=== PATIENT | female | born 1975 | race Caucasian/White ===

== ENCOUNTER → 2016-10-29 | Outpatient (CLI) | payer BC ==
--- NOTE | 2016-10-29 16:49 | CONS ---
DATE OF CONSULTATION: 10/29/2016 This patient is a 41-year-old lady who has been evaluated in the sleep center for possible obstructive sleep apnea-hypopnea syndrome and also because of awakenings from sleep with seeing some possible dream pictures and possible [id number] movements and nightmares. HISTORY OF PRESENT ILLNESS/SLEEP-WAKE EVALUATION: Patient's usual sleep schedule is from around 10 or 11 p.m. until 6:15 on working days and from around 10 or 12 until 7 or 8 a.m. on weekends. Sometimes she has problems with falling asleep. She has a TV set in the bedroom. She wakes up from sleep more than 5 times, and up to 5 times she may need to go to the bathroom. She does have occasional snoring, grinding teeth, palpitations, heartburn and gasping for air. In the morning she wakes up tired. [place] Sleepiness Scale is 6, which is normal. She worries about her sleep, has irritability and anxiety. Usually she does not take naps. Sometimes a positive history of hypnagogic hallucinations. No history of sleep paralysis. No history of cataplexy. Past medical history is positive for: 1. Hypertension. 2. Acid reflux. 3. Diabetes mellitus. 4. Anxiety. 5. Left hip pain. PAST SURGICAL HISTORY: 1. Cholecystectomy. 2. Surgery for kidney stone. MEDICATIONS: 1. Losartan hydrochlorothiazide. 2. Amlodipine. 3. Levemir. 4. Famotidine. 5. Alprazolam. 6. Ibuprofen. 7. Cyclobenzaprine. SOCIAL HISTORY: Positive for smoking for about 20 years, starting from 1 pack a day and then significantly less than 1 pack; quit 2 years ago. Alcohol consumption socially; one glass of wine. FAMILY HISTORY: Hypertension, heart problems, hyperlipidemia, stroke, arthritis, asthma, snoring, cancer, acid reflux, liver problems, diabetes, mental illness. PHYSICAL EXAMINATION: GENERAL: A pleasant 41-year-old lady without distress. VITAL SIGNS: BP 149/74, HR 90, RR 16. Height 62-1/2. Weight 314.8. BMI 56.5. Neck 17 inches in circumference. Temperature 98.2. Oxygen saturation at room air 96%. HEENT: PERRLA, EOMI. Evaluation of oropharynx showed tongue protrudes midline; short distance between soft palate and posterior pharyngeal wall. NECK: Supple. No JVD. Thyroid is not palpable. LUNGS: Clear to percussion and to auscultation. Good air exchange. No wheezing or rhonchi. HEART: S1, S2 regular. No murmurs, gallops or rubs. ABDOMEN: Obese. EXTREMITIES: No clubbing or cyanosis. PRESCHOOL DIRECTOR: Awake, alert, and oriented x3. Cranial nerves 2 to 7 intact. There is no fasciculation or atrophy noted. No focal deficits observed. IMPRESSION: 1. Occasional snoring, multiple awakenings from sleep with nocturia, obesity; possible obstructive sleep apnea-hypopnea syndrome. 2. Awakenings from sleep with nightmares. 3. Some episodes of movements, possibly out of dream. Rule out REM sleep behavioral disorder. 4. Hypertension. 5. Acid reflux. 6. Diabetes mellitus. 7. Anxiety. 8. Left hip pain. 9. Status post cholecystectomy. 10. Status post kidney stone removal. 11. Obesity; body mass index of 56.5. PLAN: 1. Polysomnography for evaluation of patient's breathing during sleep. 2. CPAP/BiPAP titration if sleep study confirms obstructive sleep apnea-hypopnea syndrome. 3. Preferable position during sleep on the side. 4. No driving if patient feels any sleepiness. Patient is aware of civil and criminal liability for unsafe driving. 5. I will see patient for follow-up visit to explain results of the testing and following plan. Thank you very much for referring this patient for consultation. Sincerely, Gentry Matute MD, PhD, FAASM. Diplomat of [employer], Sleep Medicine Board by [employer] Senior Administrator Support of [facility] [place]
== END ==
LOC: SLEEP 13:42
PROVIDERS: ATTEND Internal Medicine
DX: R06.83 Snoring (principal); I10 Essential (primary) hypertension; K21.9 Gastro-esophageal reflux disease without esophagitis; E11.9 Type 2 diabetes mellitus without complications; F41.9 Anxiety disorder, unspecified; E66.9 Obesity, unspecified; Z90.49 Acquired absence of other specified parts of digestive tract; Z68.43 Body mass index [BMI] 50.0-59.9, adult; Z79.1 Long term (current) use of non-steroidal anti-inflammatories (NSAID); Z79.899 Other long term (current) drug therapy; Z87.891 Personal history of nicotine dependence
CPT/HCPCS: 99211

== ENCOUNTER 2017-01-19 17:47 | Emergency (ER) | payer BC ==
[2017-01-19] MEDS ORDERED: SODIUM CHLORIDE 0.9% 1,000 ML IV STA (18:02)
[2017-01-19] MEDS ORDERED: MAG HYDROX/AL HYDROX/SIMETH 30 ML, HYOSCYAMINE ELIXIR 10 ML, CIMETIDINE HCL 300 MG, LID... PO STA ×4 (18:02)
[2017-01-19] MEDS ORDERED: ONDANSETRON 4 MG/2 ML VIAL IVP STA (18:02)
[2017-01-19] MEDS ORDERED: HYDROmorphone 1 MG/ML 1 ML SYRINGE IVP STA ×2 (18:02→20:39)
--- NOTE | 2017-01-19 18:06 | ED ---
Abdominal Pain HPI - General Chief Complaint: Abdominal Pain Stated Complaint: Abd Pain Time Seen by Provider: 01/19/17 17:55 Source: patient, RN notes reviewed, old records reviewed Mode of arrival: ambulatory Limitations: no limitations - History of Present Illness Initial Comments: This is a 41-year-old female presenting to the emergency room chief complaint of acute onset of epigastric abdominal pain for the past 12 hours. Patient reports that she was feeling fine until yesterday had [place] cereal for breakfast this morning. She reports that the pain started around 95 this morning she was sitting at work. She reports that the pain became unbearable and she did go home as she is also having some episodes of diarrhea. She states that she took some Pepto-Bismol which stopped the diarrhea but the pain seemed to continue to get worse. She reports that she took a Gas-X one hour prior to arrival had some belching episodes but concerned that there may be something more causing the pain besides gas or food poisoning. Patient states that she's had no vomiting but felt nauseated. She denies any other recent symptoms besides the onset of this abdominal pain today. She reports that she is diabetic and has high blood pressure. She does use insulin to manage her diabetes and her last blood sugar was 1:30. Patient does arrive to emergency department with a mild fever of 99.9. General history includes cholecystectomy. She denies any chest pain or shortness of breath. She denies any dysuria or hematuria or blood in her bowel movements. Patient denies any recent shortness of breath, chest pain, back pain, vomiting, numbness or tingling, dysuria or hematuria, constipation headaches or visual changes, or any other current symptoms - Related Data Home Medications Medication Instructions Recorded Confirmed ALPRAZolam [Xanax] 0.25 mg PO Q8HR PRN 07/05/14 01/19/17 Losartan/Hydrochlorothiazide 1 tab PO DAILY 07/05/14 01/19/17 [Losartan-Hctz 100-25 mg Tab] Furosemide [Lasix] 20 mg PO DAILY@199901/19/17 01/19/17 Insulin Detemir [Levemir Flextouch] 20 units SQ HS 01/19/17 01/19/17 Previous Rx's Medication Instructions Recorded Ibuprofen [Motrin] 800 mg PO Q6HR PRN #20 tab 08/14/14 Dicyclomine [Bentyl] 10 mg PO TID #15 capsule 01/19/17 Famotidine [Pepcid] 20 mg PO BID #20 tablet 01/19/17 Ondansetron Odt [Zofran Odt] 4 mg PO Q8HR PRN #12 tab 01/19/17 Allergies Allergy/AdvReac Type Severity Reaction Status Date / Time No Known Allergies Allergy Verified 01/19/17 18:36 Review of Systems ROS Statement: Those systems with pertinent positive or pertinent negative responses have been documented in the HPI. ROS Other: All systems not noted in ROS Statement are negative. Past Medical History Past Medical History: Hypertension History of Any Multi-Drug Resistant Organisms: None Reported Past Surgical History: Cholecystectomy Additional Past Surgical History / Comment(s): LT BREAST LUMPECTOMY, FINGER RECONSTRUCTION Past Psychological History: No Psychological Hx Reported Smoking Status: Former smoker Past Alcohol Use History: None Reported Past Drug Use History: None Reported General Exam - General Exam Comments Initial Comments: This is a 41-year-old female. No acute distress. Limitations: no limitations General appearance: alert, in no apparent distress Head exam: Present: atraumatic, normocephalic, normal inspection Eye exam: Present: normal appearance, PERRL, EOMI. Absent: scleral icterus, conjunctival injection, periorbital swelling ENT exam: Present: normal exam, mucous membranes moist Neck exam: Present: normal inspection. Absent: tenderness, meningismus, lymphadenopathy Respiratory exam: Present: normal lung sounds bilaterally. Absent: respiratory distress, wheezes, rales, rhonchi, stridor Cardiovascular Exam: Present: regular rate, normal rhythm, normal heart sounds. Absent: systolic murmur, diastolic murmur, rubs, gallop, clicks GI/Abdominal exam: Present: soft, tenderness (Patient has significant left upper quadrant epigastric tenderness.), normal bowel sounds. Absent: distended , guarding, rebound, rigid Extremities exam: Present: normal inspection, full ROM, normal capillary refill. Absent: tenderness, pedal edema, joint swelling, calf tenderness Back exam: Present: normal inspection Neurological exam: Present: alert, oriented X3, CN II-XII intact Psychiatric exam: Present: normal affect, normal mood Skin exam: Present: warm, dry, intact, normal color. Absent: rash Course Vital Signs 07/18/17 07/18/17 17:49 19:10 Temperature 100.1 F H 98.2 F Pulse Rate 95 68 Respiratory 20 16 Rate Blood Pressure 165/91 142/60 O2 Sat by Pulse 99 98 Oximetry Medical Decision Making - Medical Decision Making This is a 41-year-old female presenting to the emergency room chief complaint of acute onset of epigastric abdominal pain for the past 12 hours. Patient reports that she was feeling fine until yesterday had [place] cereal for breakfast this morning. She reports that the pain started around 95 this morning she was sitting at work. She reports that the pain became unbearable and she did go home as she is also having some episodes of diarrhea. She states that she took some Pepto-Bismol which stopped the diarrhea but the pain seemed to continue to get worse. She reports that she took a Gas-X one hour prior to arrival had some belching episodes but concerned that there may be something more causing the pain besides gas or food poisoning. Patient states that she's had no vomiting but felt nauseated. She denies any other recent symptoms besides the onset of this abdominal pain today. She reports that she is diabetic and has high blood pressure. She does use insulin to manage her diabetes and her last blood sugar was 1:30. She appears acutely discomforting in initial exam. Tenderness over the left upper and epigastric region. Patient had exquisite fever upon arriving to the emergency department. Lab work was reviewed and shows no abnormalities. Patient was reevaluated after pain medication and GI cocktail. She reports the pain has subsided somewhat however discontinue to persist. Patient continues to be tender. At this time and decided to CT abdomen and pelvis. This shows some thickening and inflammatory changes over the distal ileum consistent with possible inflammatory bowel disease. Discussed this with the patient that she is follow- up with GI specialist. Patient will be placed on a clear liquid diet for the next 48 hours. Also will be prescribed Bentyl, and Zofran and Pepcid. Advised patient to follow-up tomorrow with her primary care provider. Return parameters were discussed. - Lab Data Result diagrams: 01/19/17 18:33 01/19/17 18:33 Lab Results 01/19/17 01/19/17 01/19/17 Range/Units 18:33 18:33 18:33 WBC 10.8 H (3.8-10.6) k/uL RBC 4.98 (3.80-5.40) m/uL Hgb 13.5 (11.4-16.0) gm/dL Hct 39.4 (34.0-46.0) % MCV 79.1 L (80.0-100.0) fL MCH 27.1 (25.0-35.0) pg MCHC 34.2 (31.0-37.0) g/dL RDW 15.2 (11.5-15.5) % Plt Count 294 (150-450) k/uL Neutrophils % 71 % Lymphocytes % 22 % Monocytes % 4 % Eosinophils % 2 % Basophils % 0 % Neutrophils # 7.7 (1.3-7.7) k/uL Lymphocytes # 2.3 (1.0-4.8) k/uL Monocytes # 0.4 (0-1.0) k/uL Eosinophils # 0.2 (0-0.7) k/uL Basophils # 0.0 (0-0.2) k/uL PT 10.3 (9.0-12.0) sec INR 1.0 (<1.2) APTT 21.8 L (22.0-30.0) sec Sodium 137 (137-145) mmol/L Potassium 4.5 (3.5-5.1) mmol/L Chloride 103 (98-107) mmol/L Carbon Dioxide 21 L (22-30) mmol/L Anion Gap 13 mmol/L BUN 12 (7-17) mg/dL Creatinine 0.80 (0.52-1.04) mg/dL Est GFR (MDRD) Af Amer >60 (>60 ml/min/1.73 sqM) Est GFR (MDRD) Non-Af >60 (>60 ml/min/1.73 sqM) Glucose 127 H (74-99) mg/dL Plasma Lactic Acid Som (0.7-2.0) mmol/L Calcium 9.6 (8.4-10.2) mg/dL Total Bilirubin 1.0 (0.2-1.3) mg/dL AST 44 H (14-36) U/L ALT 68 H (9-52) U/L Alkaline Phosphatase 116 (38-126) U/L Total Protein 7.6 (6.3-8.2) g/dL Albumin 4.3 (3.5-5.0) g/dL Amylase 40 (30-110) U/L Lipase 64 (23-300) U/L Urine Color Urine Appearance (Clear) Urine pH (5.0-8.0) Ur Specific [place] (1.001-1.035) Urine Protein (Negative) Urine Glucose (UA) (Negative) Urine Ketones (Negative) Urine Blood (Negative) Urine Nitrite (Negative) Urine Bilirubin (Negative) Urine Urobilinogen (<2.0) mg/dL Ur Leukocyte Esterase (Negative) Urine RBC (0-5) /hpf Urine WBC (0-5) /hpf Ur Squamous Epith Cells (0-4) /hpf Urine Bacteria (None) /hpf Urine Mucus (None) /hpf 01/19/17 01/19/17 Range/Units 18:33 18:49 WBC (3.8-10.6) k/uL RBC (3.80-5.40) m/uL Hgb (11.4-16.0) gm/dL Hct (34.0-46.0) % MCV (80.0-100.0) fL MCH (25.0-35.0) pg MCHC (31.0-37.0) g/dL RDW (11.5-15.5) % Plt Count (150-450) k/uL Neutrophils % % Lymphocytes % % Monocytes % % Eosinophils % % Basophils % % Neutrophils # (1.3-7.7) k/uL Lymphocytes # (1.0-4.8) k/uL Monocytes # (0-1.0) k/uL Eosinophils # (0-0.7) k/uL Basophils # (0-0.2) k/uL PT (9.0-12.0) sec INR (<1.2) APTT (22.0-30.0) sec Sodium (137-145) mmol/L Potassium (3.5-5.1) mmol/L Chloride (98-107) mmol/L Carbon Dioxide (22-30) mmol/L Anion Gap mmol/L BUN (7-17) mg/dL Creatinine (0.52-1.04) mg/dL Est GFR (MDRD) Af Amer (>60 ml/min/1.73 sqM) Est GFR (MDRD) Non-Af (>60 ml/min/1.73 sqM) Glucose (74-99) mg/dL Plasma Lactic Acid Som 1.4 (0.7-2.0) mmol/L Calcium (8.4-10.2) mg/dL Total Bilirubin (0.2-1.3) mg/dL AST (14-36) U/L ALT (9-52) U/L Alkaline Phosphatase (38-126) U/L Total Protein (6.3-8.2) g/dL Albumin (3.5-5.0) g/dL Amylase (30-110) U/L Lipase (23-300) U/L Urine Color Yellow Urine Appearance Cloudy H (Clear) Urine pH 5.5 (5.0-8.0) Ur Specific [place] 1.018 (1.001-1.035) Urine Protein Trace H (Negative) Urine Glucose (UA) Negative (Negative) Urine Ketones Negative (Negative) Urine Blood Negative (Negative) Urine Nitrite Negative (Negative) Urine Bilirubin Negative (Negative) Urine Urobilinogen <2.0 (<2.0) mg/dL Ur Leukocyte Esterase Small H (Negative) Urine RBC 6 H (0-5) /hpf Urine WBC 3 (0-5) /hpf Ur Squamous Epith Cells 4 (0-4) /hpf Urine Bacteria Rare H (None) /hpf Urine Mucus Rare H (None) /hpf - Radiology Data Radiology results: report reviewed Disposition Clinical Impression: Enteritis Disposition: HOME SELF-CARE Condition: Good Instructions: Enteritis (ED) Additional Instructions: Patient is advised to have a clear liquid diet for the next 24-48 hours. Take medications as prescribed. Also recommending to follow-up with GI specialist for further evaluation and possible scopes. Patient is to return to the emergency department if any alarming signs or symptoms occur. Prescriptions: Dicyclomine [Bentyl] 10 mg PO TID #15 capsule Famotidine [Pepcid] 20 mg PO BID #20 tablet Ondansetron Odt [Zofran Odt] 4 mg PO Q8HR PRN #12 tab PRN Reason: Nausea Referrals: Kelvin Francis DO [Primary Care Provider] - 1-2 days Time of Disposition: 20:30
[2017-01-19 18:49] LABS: Basophils % (A) 0 %; CH 26.5; CHCM 33.6; Eosinophils # (A) 0.2 k/uL (0-0.7); Eosinophils % (A) 2 %; HCT 39.4 % (34.0-46.0); HDW 2.82; HGB 13.5 gm/dL (11.4-16.0); Luc # (Auto) 0.15; Luc % (Auto) 1; Lymphocytes # (A) 2.3 k/uL (1.0-4.8); Lymphocytes % (A) 22 %; MCH 27.1 pg (25.0-35.0); MCHC 34.2 g/dL (31.0-37.0); MCV 79.1 fL (80.0-100.0); Mean Platelet Volume 7.7; Monocytes # (A) 0.4 k/uL (0-1.0); Monocytes % (A) 4 %; Neutrophils # (A) 7.7 k/uL (1.3-7.7); Neutrophils % (A) 71 %; RBC 4.98 m/uL (3.80-5.40); RDW 15.2 % (11.5-15.5); WBC 10.8 k/uL (3.8-10.6); WBC (Perox) 10.91
[2017-01-19 18:56] LABS: Appearance,Urine Cloudy (Clear); Bacteria,Urine Rare /hpf; Bilirubin,Urine Negative (Negative); Glucose,Urine (UA) Negative (Negative); Ketones,Urine Negative (Negative); Leukocyte Esterase,Urine Small (Negative); Mucus,Urine Rare /hpf; Nitrite,Urine Negative (Negative); PH, Urine 5.5 (5.0-8.0); Particle Count 5884; Protein,Urine Trace (Negative); RBC,Urine 6 /hpf (0-5); Specific Gravity,Urine 1.018 (1.001-1.035); Squamous Epithelial Cell,Urine 4 /hpf (0-4); UA Billing (MACRO vs. MICRO) MICRO; Urobilinogen,Urine <2.0 mg/dL (<2.0); WBC,Urine 3 /hpf (0-5)
[2017-01-19 18:59] LABS: ALT 68 U/L (9-52); AST 44 U/L (14-36); Alkaline Phosphatase 116 U/L (38-126); Amylase 40 U/L (30-110); Anion Gap 13 mmol/L; Blood Urea Nitrogen 12 mg/dL (7-17); Calcium 9.6 mg/dL (8.4-10.2); Carbon Dioxide 21 mmol/L (22-30); Chloride 103 mmol/L (98-107); Glucose 127 mg/dL (74-99); Non-African American GFR(MDRD) >60 (>60 ml/min/1.73 sqM); Potassium 4.5 mmol/L (3.5-5.1); Sodium 137 mmol/L (137-145); Total Protein 7.6 g/dL (6.3-8.2)
[2017-01-19 19:09] LABS: Partial Thromboplastin Time 21.8 sec (22.0-30.0)
--- NOTE | 2017-01-19 19:10 | XR ---
EXAMINATION TYPE: XR KUB DATE OF EXAM: 01/19/2017 COMPARISON: NONE HISTORY: Vomiting TECHNIQUE: 2 views FINDINGS: There are clips from cholecystectomy. Bowel gas pattern is normal. There is no sign of inte stinal obstruction or pneumoperitoneum. Fecal pattern is normal. There is a faint 5 mm calcification over the right kidney. Lung bases are clear. IMPRESSION: Possible right renal calculus. Nonacute abdomen. Calculus is probably not changed compare d to old CT scan of 08/14/2014
[2017-01-19 19:12] VITALS: PULSE 68; RESP 16
[2017-01-19 19:19] LABS: Prothrombin Time 10.3 sec (9.0-12.0)
[2017-01-19] MEDS ORDERED: RX INFO: IV CONTRAST WAS GIVEN 1 EACH MISC MISCELLANE PRN (19:43)
[2017-01-19] MEDS ORDERED: SODIUM CHLORIDE 0.9% 1,000 ML IV ONE (20:05)
--- NOTE | 2017-01-19 20:20 | CT ---
EXAMINATION TYPE: CT abdomen pelvis w con DATE OF EXAM: 01/19/2017 COMPARISON: 08/14/2014 HISTORY: Pt states of upper abdominal pain x1 day. CT DLP: 3483.2 mGycm Automated exposure control for dose reduction was used. TECHNIQUE: Helical acquisition of images was performed from the lung bases through the pelvis. CONTRAST: Performed without Oral Contrast and with IV Contrast, patient injected with 100 mL of Omnipaque 300. FINDINGS: Lung bases are clear. There is no pleural effusion. The liver spleen pancreas appear normal. Bile ducts are not dilated. There are clips from cholecystec topher. There is no adrenal mass. Kidneys show satisfactory contrast opacification. There is no hydronephrosi s. There is a 1 cm calculus in the upper pole right kidney. There is no hydronephrosis. Appendix appe ars normal. There is no retroperitoneal adenopathy. There are some small bowel loops with wall thickening that are probably the distal ileum. There is probably a small amount of free fluid in the pelvis. Bladder is almost empty. I see no pelvi c mass. I see no bony destructive process. IMPRESSION: THERE IS NEW MILD FREE FLUID IN THE PELVIS. THERE IS A LONG SEGMENT OF WALL THICKENING INVOLVING THE DISTAL ILEUM THAT APPEARS NEW COMPARED TO OLD EXAM AND COULD RELATE TO INFLAMMATORY BOWEL DISEASE. NORMAL APPENDIX. NONOBSTRUCTING RIGHT RENAL CALCULUS.
[2017-01-19] MEDS ORDERED: DICYCLOMINE 10 MG CAP PO STA (20:34)
[2017-01-19 21:18] VITALS: BP 126/60; TEMP 97.9
== END 2017-01-19 21:17 | disposition home or self-care (01) ==
LOC: EC 17:47
DX: K52.9 Noninfective gastroenteritis and colitis, unspecified (principal); N20.0 Calculus of kidney; I10 Essential (primary) hypertension; E11.9 Type 2 diabetes mellitus without complications; Z90.49 Acquired absence of other specified parts of digestive tract; Z79.4 Long term (current) use of insulin; Z79.899 Other long term (current) drug therapy; Z87.891 Personal history of nicotine dependence
CPT/HCPCS: 99285; 96374; 96375; 96376; 96361 ×2; 36415; 80053; 82150; 83605; 83690; 85025; 85610; 85730; 81001; 87040; 74000; 74177; J2405; J1170; Q9967

== ENCOUNTER → 2017-06-02 | Outpatient (CLI) | payer BC ==
--- NOTE | 2017-06-02 18:57 | PN ---
PROGRESS NOTE DATE OF SERVICE: 06/02/2017 A 41-year-old lady who has been followed in sleep center for treatment of obstructive sleep apnea-hypopnea syndrome. Recently the patient has been diagnosed with obstructive sleep apnea by results of home sleep apnea test and then she was started on treatment with AutoPap. Today she came for followup visit to check to progress and to make following plan and any changes. Presently, patient is able to use her machine pretty well, practically every night without problems. She sleeps better and she feels better during the day. [place] Sleepiness Scale is 3. I checked reading from her machine. She uses it 100% of the time and 93% of the time more than 4 hours. Average usage for the whole day is 7 hours 37 minutes. Regimen in the machine in the range between 5 and 20 cm of water, 95th percentile pressure and the machine is 7.8 cm of water. This regimen reading of her breathing showed apnea-hypopnea index only 1.3, which is in normal range. Leak 95th percentile is only 8.2 L/minute, which is normal range. MEDICATIONS: 1. Insulin. 2. Motrin. 3. Xanax. PHYSICAL EXAMINATION: GENERAL: Patient in no distress. VITAL SIGNS: BP 127/69, HR 98, RR 16, weight 327.8, temp 97.9, oxygen saturation at room air 98%. HEENT: PERRLA, EOMI, evaluation of oropharynx showed tongue protrudes midline, extremely low position of soft palate. NECK: Supple, no JVD. Thyroid is not palpable. LUNGS: Clear to percussion and to auscultation. Good air exchange. No wheezing or rhonchi. HEART: S1, S2 regular. No murmurs, gallops, or rubs. ABDOMEN: Obese, soft and nontender. Bowel sounds are present. No organomegaly appreciated. EXTREMITIES: No clubbing or cyanosis. EYEGLASS FRAME TRUER: Awake, alert, and oriented X3. Cranial nerves 2 to 7 intact. There is no fasciculation or atrophy. noted. No focal deficits observed. IMPRESSION: 1. Obstructive sleep apnea-hypopnea syndrome on control with continuous positive airway pressure. The patient demonstrated practically 100% compliance with treatment, benefitting from treatment. 2. Obesity. 3. Hypertension. 4. Diabetes mellitus. 5. Anxiety. PLAN: 1. Continue treatment with CPAP every night for the whole night. 2. Losing weight. 3. Sleep hygiene with regular time in bed for at least 8 hours. 4. No driving if feeling any sleepiness. 5. Followup visit in 1 year or earlier if patient has any problems. Thank you very much for allowing me to participate in management of your patient. Sincerely, Gentry Matute MD, PhD, FAASM Diplomat of [employer] Medicine Research Project Manager of [facility] [place] MMODL / NARDAN: [id number] /
== END | disposition home or self-care (01) ==
LOC: SLEEP 16:41
PROVIDERS: ATTEND Internal Medicine
DX: G47.33 Obstructive sleep apnea (adult) (pediatric) (principal); E66.9 Obesity, unspecified; I10 Essential (primary) hypertension; E11.9 Type 2 diabetes mellitus without complications; F41.9 Anxiety disorder, unspecified; Z79.4 Long term (current) use of insulin; Z79.1 Long term (current) use of non-steroidal anti-inflammatories (NSAID); Z79.899 Other long term (current) drug therapy

== ENCOUNTER → 2018-05-23 | Outpatient (CLI) | payer BC ==
--- NOTE | 2018-05-24 13:22 | MM ---
Reason for exam: screening (asymptomatic). Last mammogram was performed 2 years and 11 months ago. History: Patient is nulliparous. Benign excisional biopsy of the right breast, 1994. Physical Findings: A clinical breast exam by your physician is recommended on an annual basis and results should be correlated with mammographic findings. MG Screening Mammo w CAD Bilateral CC, MLO, and XCCL view(s) were taken. Prior study comparison: June 18, 2015, bilateral MG 3d diag mammo w/cad YAHAIRA. There are scattered fibroglandular densities. Benign calcifications in the right breast. No suspicious abnormality. No significant changes when compared with prior studies. ASSESSMENT: Benign, BI-RAD 2 RECOMMENDATION: Routine screening mammogram of both breasts in 1 year.
== END | disposition home or self-care (01) ==
LOC: RADMAMWWP 09:05
PROVIDERS: ATTEND Family Medicine
DX: Z12.31 Encounter for screening mammogram for malignant neoplasm of breast (principal)
CPT/HCPCS: 77067

== ENCOUNTER → 2018-06-22 | Outpatient (CLI) | payer BC ==
--- NOTE | 2018-06-22 15:20 | PN ---
PROGRESS NOTE DATE OF SERVICE: 06/22/2018 A 42-year-old lady who has been followed in the Sleep Center for treatment of obstructive sleep apnea-hypopnea syndrome. Patient continued to use her CPAP equipment every night for the whole night. Sleeps well except sometimes she has a water in nose. [place] Sleepiness Scale today is 5, which is normal. I checked patient's CPAP unit. Usage is 100% of the time more than 4 hours. Average usage 8.7 hours per night. Pressure is 7.5 cm of water. Leak is only 1 L/minute. Apnea-hypopnea index 1.1, which is absolutely normal. Patient's CPAP unit staying higher than her head during the night. MEDICATIONS: Insulin, Motrin, Xanax. PHYSICAL EXAM: Patient in no distress. BP 152/102, HR 97, RR18, height 62, weight 332.6,, body mass index 60.7, temperature 98.2, patient increased her weight on 5 pounds comparing to the previous visit. OROPHARYNX: Extremely low position of soft palate. ABDOMEN: Obese. Neck Supple, no JVD. Thyroid is not palpable. LUNGS Clear to percussion and to auscultation. Good air exchange. No wheezing or rhonchi. HEART S1, S2 regular. No murmurs, gallops, or rubs. EXTREMITIES No clubbing or cyanosis. PROP ATTENDANT Awake, alert, and oriented X3. Cranial nerves 2 to 7 intact. There is no fasciculation or atrophy. noted. No focal deficits observed. IMPRESSION: 1. Obstructive sleep apnea-hypopnea syndrome. Patient demonstrated 100% compliance with treatment, benefitting from treatment. 2. Obesity. 3. Hypertension. 4. Diabetes mellitus. 5. History of anxiety. PLAN: 1. Patient will put CPAP unit down lower than the level of her head during the sleep. 2. Losing weight. 3. Sleep hygiene with regular time in bed for at least 8 hours. 4. No driving if feeling sleepiness. 5. Prescription for all necessary CPAP supplies including nasal pillow, Coronel FX mask, tube, filters. Thank you very much for allowing me to participate in the management of your patient. Sincerely, Gentry Matute MD, PhD, FAASM Diplomat of [employer] [facility] [place] MMODL / IJN: [id number] /
== END | disposition home or self-care (01) ==
LOC: SLEEP 10:39
PROVIDERS: ATTEND Internal Medicine
DX: G47.33 Obstructive sleep apnea (adult) (pediatric) (principal); E66.9 Obesity, unspecified; E11.9 Type 2 diabetes mellitus without complications; I10 Essential (primary) hypertension; F41.9 Anxiety disorder, unspecified; Z99.89 Dependence on other enabling machines and devices; Z79.4 Long term (current) use of insulin; Z79.1 Long term (current) use of non-steroidal anti-inflammatories (NSAID); Z79.899 Other long term (current) drug therapy; Z68.44 Body mass index [BMI] 60.0-69.9, adult

== ENCOUNTER 2018-09-02 08:21 | Day surgery (SDC) | payer BC ==
[2018-08-31 16:11] VITALS: BMI 58.4
--- NOTE | 2018-09-02 05:16 | HP ---
HISTORY AND PHYSICAL CHIEF COMPLAINT: Lesion of the left tonsillar . HISTORY OF PRESENT ILLNESS: This patient is a 43-year-old female who presented to my office complaining of having a lesion/mass in the left tonsillar area. She states it has been there for approximately 10 years ago. The patient quit smoking completely about approximately 3 years ago and has not used any tobacco products since that time. She denied any dysphagia or referred otalgia. At the time that she was seen in the office, clinical examination of the oropharynx revealed the patient had a large polypoid lesion located in the inferior aspect of the left tonsillar fossa. With a recent history of smoking, it was recommended that she undergo an excision of this lesion under general anesthesia. PAST MEDICAL HISTORY: Past medical history reveals she has an allergy to TYLENOL?. Current medications include NovoLog insulin, Xanax, Motrin, Levemir, and amlodipine, candesartan/HCTZ. Previous surgeries include removal of kidney stones, cholecystectomy, reconstruction of the right middle finger, anal fissure surgery, lumpectomy right breast x2. REVIEW OF SYSTEMS: Review of systems reveals the cardiovascular system is positive for hypertension. The metabolic endocrine system is positive for type 1 diabetes mellitus. The remainder of the review of systems is essentially unremarkable. PHYSICAL EXAMINATION: This patient is a 43-year-old female who is alert and cooperative. HEENT EXAMINATION: Patient is normocephalic. Tympanic membranes are normal. Middle ear space is free of any fluid or infection. Pupils equal, round, and react like accommodation. Extraocular movements within normal limits. Intranasal examination reveals moderate septal deviation with compensatory hypertrophy of the inferior turbinates and a moderate amount of mucus on the mucous membranes and draining down the posterior pharynx. Examination of oropharynx reveals the patient has a 3 to 4 mm papillomatous lesion located in the left tonsillar fossa. Palpation of the neck, cranial nerves 2 through 12 and the remainder of the head and neck exam is unremarkable. CHEST/CARDIOVASCULAR: Both lung hanna are clear to percussion and auscultation. The patient is in regular sinus rhythm. S1 and S2 are present without any murmurs, S3, or S4s. Peripheral pulses are bilaterally symmetrical and within normal limits. ABDOMEN: There is no evidence of any masses, megaly or tenderness. The abdomen is soft. Skin is unremarkable. Musculoskeletal and neurological are within normal limits. PELVIC/RECTAL EXAM: The pelvic rectal exam is deferred at this time because the patient has this done on a regular basis at her family physician's office. The remainder of physical exam is unremarkable. IMPRESSION: Lesion of left tonsillar fossa. PLAN: The patient is scheduled to undergo excision of lesion of the left tonsillar fossa under general anesthesia in a.m. ATTENTION RNS IN THE PRE-SURGICAL AREA: The only pre-surgical antibiotic that I have ordered is Kefzol 2 grams IVPB to be given once an intravenous line has been established. If the pharmacy department sends a different type of preoperative prophylactic antibiotic to the pre-surgical area for this patient, please cancel that order and return to the pharmacy and make sure the patient's account is credited appropriately. I have discussed the risks, benefits and alternative therapies for the above-mentioned procedure and for both sedation/analgesia as well as necessary blood product administration, if indicated, as they pertain to this patient. The patient has indicated his or her understanding and acceptance of the risks and procedures discussed. MMODL / IJN: [id number] /
[~2018-09-02 08:21] MED LIST: DEXAMETHASONE SOD PHOSPHATE 10 MG/ML 1 ML VIAL IV ONE; HYDROmorphone 0.5 MG/0.5 ML SYRINGE IVP PRN; LACTATED RINGERS 1,000 ML IV SCH; MIDAZOLAM (PF) 2 MG/2 ML VIAL IV PRN; ONDANSETRON 4 MG/2 ML VIAL IVP ONE; Pre Op ABX Message 1 EACH MISC MISCELLANE ONE; SCOPOLAMINE 1.5MG/72HR PATCH TRANSDERM ONE
[2018-09-02] MEDS ORDERED: LACTATED RINGERS 1,000 ML IV ONE (08:50)
[2018-09-02 09:05] LABS: Glucose,Whole Blood 164 mg/dL (75-99)
[2018-09-02 09:17] VITALS: TEMP 97.6
[2018-09-02 09:19] LABS: Blood Urea Nitrogen 18 mg/dL (7-17); Potassium 4.5 mmol/L (3.5-5.1)
[2018-09-02] MEDS ORDERED: ceFAZolin IN SWFI 2 GM/20 ML SYRINGE IVP ONE (09:45)
[2018-09-02] MEDS ORDERED: ceFAZolin 2 GM in SODIUM CHLORIDE 0.9% 100 ML IVPB ONE (09:45)
[2018-09-02] MEDS ORDERED: PROPOFOL 10 MG/ML 20 ML VIAL IV ONE (10:16)
[2018-09-02] MEDS ORDERED: LIDOCAINE 1% INJ 10MG/ML (20 ML MDV) ONE (10:16)
[2018-09-02] MEDS ORDERED: MIDAZOLAM 2 MG/2 ML VIAL ONE (10:16)
[2018-09-02] MEDS ORDERED: SUCCINYLCHOLINE CHLORIDE VIAL 200 MG/10 ML VIAL IV ONE (10:16)
[2018-09-02] MEDS ORDERED: fentaNYL (PF) 50 MCG/ML 2 ML AMP ONE (10:16)
[2018-09-02] MEDS ORDERED: ROPIVACAINE 5 MG/ML 30 ML VIAL MISCELLANE ONE ×2 (10:36)
[2018-09-02 11:44] VITALS: BP 98/63; PULSE 90; RESP 16
[2018-09-02 12:08] LABS: Glucose,Whole Blood 202 mg/dL (75-99)
--- NOTE | 2018-09-05 21:49 | OP ---
OPERATIVE REPORT DATE OF SURGERY: 09/02/2018 PREOPERATIVE DIAGNOSIS: Lesion measuring 4 to 5 mm of the left tonsillar fauces. POSTOPERATIVE DIAGNOSIS: Lesion measuring 4 to 5 mm of the left tonsillar fauces. Final pathology is pending. ANESTHESIA: General. OPERATIVE PROCEDURE: Complete excision of lesion of the left tonsillar fauces. SURGEON: Dr. Grover. COMPLICATIONS: None. ESTIMATED BLOOD LOSS: Less than 5 mL. OPERATIVE PROCEDURE DESCRIPTION: The patient was placed on the operating table in supine position, and after uneventful induction and endotracheal intubation, satisfactory general anesthesia was obtained. Next the patient was draped in the usual and customary fashion. Following this, a #3 Lily-Enrique mouth gag was inserted into the patient's oropharynx and expanded, and subsequently it was suspended on a Posey stand. Next, the lesion in question was grasped with a pair of DeBakey forceps and pulled superiorly and anteriorly, thus exposing the base of this lesion. The lesion itself was then excised using a tonsillar sickle knife in the usual fashion, cutting through mucous membrane down to the level of the underlying muscle tissue. The specimen was excised as a single piece and was sent to Pathology in formalin for permanent sectioning. Hemostasis was obtained using electrocautery. No sutures were put in place. Once it was established that there was no active bleeding, the procedure was terminated. There were no intraoperative complications. The patient tolerated the procedure well and was returned to the recovery room in satisfactory condition. Final pathology is pending. Estimated time of procedure was approximately 30 minutes. MMMARY / NARDAN: [id number] /
== END 2018-09-02 13:15 | disposition home or self-care (01) ==
LOC: OR 08:21
PROVIDERS: ATTEND Otolaryngology
DX: J35.1 Hypertrophy of tonsils (principal); I10 Essential (primary) hypertension; G47.33 Obstructive sleep apnea (adult) (pediatric); E11.9 Type 2 diabetes mellitus without complications; F41.9 Anxiety disorder, unspecified; E66.9 Obesity, unspecified; K76.0 Fatty (change of) liver, not elsewhere classified; Z87.891 Personal history of nicotine dependence; Z79.4 Long term (current) use of insulin; Z79.1 Long term (current) use of non-steroidal anti-inflammatories (NSAID); Z79.899 Other long term (current) drug therapy; Z87.442 Personal history of urinary calculi; Z90.49 Acquired absence of other specified parts of digestive tract; Z88.5 Allergy status to narcotic agent; Z68.43 Body mass index [BMI] 50.0-59.9, adult
CPT/HCPCS: 81025; 88305; 82565; 84132; 84520; 42808; J2250; J0330; J1100; J2405; J2001; J3010; J2795; J2704; J0690

== ENCOUNTER → 2019-08-18 | Outpatient (CLI) | payer BC ==
--- NOTE | 2019-08-22 09:07 | MM ---
Reason for exam: screening (asymptomatic). Last mammogram was performed 1 year and 3 months ago. History: Patient is nulliparous. Benign excisional biopsy of the right breast, 1994. Physical Findings: A clinical breast exam by your physician is recommended on an annual basis and results should be correlated with mammographic findings. MG 3D Screening Mammo W/Cad Bilateral CC and MLO view(s) were taken. Prior study comparison: May 23, 2018, bilateral MG screening mammo w CAD. June 18, 2015, bilateral MG 3d diag mammo w/cad YAHAIRA. Stable dystrophic calcifications right upper inner quadrant. No significant changes when compared with prior studies. ASSESSMENT: Negative, BI-RAD 1 RECOMMENDATION: Routine screening mammogram of both breasts in 1 year.
== END | disposition home or self-care (01) ==
LOC: RADMAMWWP 14:27
PROVIDERS: ATTEND Family Medicine
DX: Z12.31 Encounter for screening mammogram for malignant neoplasm of breast (principal)
CPT/HCPCS: 77063; 77067

== ENCOUNTER → 2019-08-31 | Outpatient (CLI) | payer BC ==
--- NOTE | 2019-08-31 11:24 | SFUN ---
SLEEP CENTER FOLLOW UP NOTE DATE OF SERVICE: 08/31/2019 This 44-year-old lady has been followed in Sleep Center for treatment of obstructive sleep apnea-hypopnea syndrome. The patient continued to use your CPAP equipment every night. Sleeps well with equipment. No snoring. [place] Sleepiness Scale today is 1. I checked CPAP unit, range of the pressure 5 to 20, average pressure 9.0. Usage is 30 out of 30 nights for more than 4 hours with average usage 8.8 hours for the last month. For the year, it is 365 out of 365 nights of usage with average usage 8.3 hours. Leak 0 L/minute. Apnea-hypopnea index for the last month 1.3; for the year, 1.1, which is perfect. MEDICATIONS: Candesartan, amlodipine, Motrin, Levemir, Xanax. PHYSICAL EXAMINATION: During physical exam, patient in no distress. VITAL SIGNS: BP 107/63, HR 93, RR 15, height 5 feet 2-1/2 inches, weight 343.6 pounds, which is 11 pounds more than during last visit. Body mass index 61.7. Temperature 97.9. Oxygen saturation on room 98%. HEENT: PERRLA, EOMI. Oropharynx low position of soft palate, Mallampati 3-4. NECK: Supple, no JVD. Thyroid is not palpable. LUNGS: Clear to percussion and to auscultation. Good air exchange. No wheezing or rhonchi. HEART: S1, S2 regular. No murmurs, gallops, or rubs. ABDOMEN: Obese. EXTREMITIES: No clubbing or cyanosis. SAP BI DEVELOPER: Awake, alert, and oriented X3. Cranial nerves 2 to 7 intact. There is no fasciculation or atrophy. noted. No focal deficits observed. IMPRESSION: 1. Obstructive sleep apnea-hypopnea syndrome. Patient demonstrated 100% compliance with treatment benefitting from treatment, normal respiration on CPAP. 2. Obesity. 3. Hypertension. 4. Diabetes mellitus. 5. History of anxiety. 6. Patient is a driver education road instructor. PLAN: 1. Patient will continue to use CPAP equipment every night for the whole night. 2. Precautions related to driving. No driving if feeling sleepiness. Patient is aware about civil and criminal liability for unsafe driving. 3. I will maintain all necessary prescriptions for CPAP supplies including Coronel FX nasal mask for medium-size, heated tube, filters. Thank you very much for allowing me to participate in management of your patient. Sincerely, Gentry Matute MD, PhD, FAASM Diplomat of [place] [employer] [place] [employer] Dandy Tender of [facility] [place] MMODL / NARDAN: [id number] /
== END | disposition home or self-care (01) ==
LOC: SLEEP 10:05
PROVIDERS: ATTEND Internal Medicine
DX: G47.33 Obstructive sleep apnea (adult) (pediatric) (principal); E66.9 Obesity, unspecified; I10 Essential (primary) hypertension; E11.9 Type 2 diabetes mellitus without complications; Z86.59 Personal history of other mental and behavioral disorders; Z68.44 Body mass index [BMI] 60.0-69.9, adult; Z79.1 Long term (current) use of non-steroidal anti-inflammatories (NSAID); Z79.899 Other long term (current) drug therapy

== ENCOUNTER → 2019-11-28 | Outpatient (CLI) | payer BC ==
--- NOTE | 2019-11-28 14:07 | US ---
EXAMINATION TYPE: US kidneys/renal and bladder DATE OF EXAM: 11/28/2019 COMPARISON: NONE CLINICAL HISTORY: N28.9 disorder of kidney and ureter, unspecified. EXAM MEASUREMENTS: Right Kidney: 10.4 x 4.8 x 4.9 cm Left Kidney: 12.5 x 5.3 x 5.1 cm Right Kidney: No hydronephrosis or masses seen Left Kidney: No hydronephrosis or masses seen Bladder: wnl There is no evidence for hydronephrosis at this point in time. No nephrolithiasis is seen. No jennifer s are identified. The urinary bladder is anechoic. Cortical nodularity differentiation is maintained. IMPRESSION: No evident abnormality
== END | disposition home or self-care (01) ==
LOC: RADUSWWP 12:30
PROVIDERS: ATTEND Family Medicine
DX: N28.9 Disorder of kidney and ureter, unspecified (principal)
CPT/HCPCS: 76770

== ENCOUNTER → 2020-09-05 | Outpatient (CLI) | payer BC ==
--- NOTE | 2020-09-05 19:40 | SFUN ---
SLEEP CENTER FOLLOW UP NOTE DATE OF SERVICE: 09/05/2020 45-year-old lady has been followed in the Sleep Center for treatment of obstructive sleep apnea-hypopnea syndrome. The patient continues to use her CPAP equipment every night. Feels comfortable with the machine. Some small part on her machine cover of air filter partially broken. Hixson Sleepiness Scale today is 6, which is normal. I checked CPAP unit. It is on automatic regimen. Range of the pressure 5-20, average pressure 9.2 cm of water. Usage is 30/30 nights for more than 4 hours. Average usage is 7.7 hours per night. Leak is 0 L/minute which is perfect. Apnea-hypopnea index 0.9, which is also perfect. MEDICATIONS: Candesartan hydrochlorothiazide 15/12.5 once a day. Alprazolam 0.25 mg as needed, NovoLog 12 units daily, Levemir 50 units at bedtime, Symbicort inhaler. PHYSICAL EXAM: Patient in no distress. BP 134/77, HR 52, RR 15, height 5 feet 3 inches, weight 331.8, temperature 97.0, oxygen saturation on room air 100%. Oropharynx low position of soft palate, Mallampati 3-4. NECK: Supple, no JVD. Thyroid is not palpable. LUNGS: Clear to percussion and to auscultation. Good air exchange. No wheezing or rhonchi. HEART: S1, S2 regular. No murmurs, gallops, or rubs. ABDOMEN: Obese. Soft and nontender. Bowel sounds are present. No organomegaly appreciated. EXTREMITIES: No clubbing or cyanosis. FIRE ALARM INSPECTOR: Awake, alert, and oriented X3. Cranial nerves 2 to 7 intact. There is no fasciculation or atrophy. noted. No focal deficits observed. IMPRESSION: 1. Obstructive sleep apnea-hypopnea syndrome. Patient demonstrated 100% compliance with treatment, benefitting from treatment, normal respiration on CPAP. 2. Obesity, patient lost 12 pounds since previous visit. 3. Hypertension. 4. Diabetes mellitus. 5. History of anxiety. 6. 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 PLAN: 1. Replace cover for air filters. Prescription was written. 2. Patient will continue to use PAP equipment every night for the whole night. 3. Sleep hygiene with regular time in bed for at least 7-1/2 to 8 hours. 4. Precautions related to driving. No driving if feeling sleepiness. 5. I will maintain all necessary prescription for PAP supplies including mask, tube, filters. 6. Watching weight. 7. No driving if feeling sleepiness. 8. Follow-up visit in 6 months or earlier if patient has any problems. Thank you very much for allowing me to participate in management of your patient. Sincerely, Gentry Matute MD, PhD, FAASM Diplomat of [employer] Internal Medicine Heavy Equipment Sales Associate of [facility] [place] MMODL / IJN: [id number] /
== END | disposition home or self-care (01) ==
LOC: SLEEP 15:12
PROVIDERS: ATTEND Internal Medicine
DX: G47.33 Obstructive sleep apnea (adult) (pediatric) (principal); E66.9 Obesity, unspecified; I10 Essential (primary) hypertension; E11.9 Type 2 diabetes mellitus without complications; Z99.89 Dependence on other enabling machines and devices; Z86.59 Personal history of other mental and behavioral disorders

== ENCOUNTER → 2021-01-14 | Outpatient (CLI) | payer BC ==
--- NOTE | 2021-01-14 15:22 | XR ---
EXAMINATION TYPE: XR chest 2V DATE OF EXAM: 01/14/2021 COMPARISON: Chest x-ray 07/05/2014 HISTORY: R06.00 Dyspnea TECHNIQUE: Frontal and lateral views of the chest are obtained. FINDINGS: There is no focal air space opacity, pleural effusion, or pneumothorax seen. The cardiac silhouette size is within normal limits. Stable elevation of the right hemidiaphragm. Surgical clips present in the upper abdomen. There is thoracic spondylosis. The osseous structures are intact. IMPRESSION: No acute cardiopulmonary process.
== END | disposition home or self-care (01) ==
LOC: RADXRMAIN 13:24
PROVIDERS: ATTEND Family Medicine
DX: R06.00 Dyspnea, unspecified (principal)
CPT/HCPCS: 71046

== ENCOUNTER → 2021-03-13 | Outpatient (CLI) | payer BC ==
--- NOTE | 2021-03-13 21:01 | SFUN ---
SLEEP CENTER FOLLOW UP NOTE DATE OF SERVICE: 03/13/2021 This 45-year-old lady has been followed in Sleep Center for treatment of obstructive sleep apnea-hypopnea syndrome. The patient continues to use her CPAP equipment every night. She changed her mask to the full-face mask. Sometimes she has a feeling that there is water going to her mouth during sleep. Cookson Sleepiness Scale today is 2. I checked her CPAP unit. Range of the pressure is 5 to 20 with average pressure 11 cm of water. Usage is 100% of nights, 8 hours per night. Leak is 1 L/minute. Apnea- hypopnea index is only 1.1, which is perfect. I extensively discussed with the patient adjustments to the humidifier and temperature in the tube. Air filter needs to be replaced. MEDICATIONS: 1. Candesartan 15/12.5 mg once a day. 2. Levemir 50 units at bedtime. 3. NovoLog 12 units twice a day. 4. Singulair once a day. 5. Vitamin D supplement. PHYSICAL EXAMINATION: GENERAL: Pleasant patient in no distress. VITAL SIGNS: BP 122/78, HR 95, RR 16, height 5 feet 4 inches, weight 339 pounds. The patient's weight increased by 8 pounds compared to the previous visit. HEENT: PERRLA, EOMI, evaluation of oropharynx showed tongue protrudes midline. Low position of soft palate; Mallampati III to IV. NECK: Supple, no JVD. Thyroid is not palpable. LUNGS: Clear to percussion and to auscultation. Good air exchange. No wheezing or rhonchi. HEART: S1, S2 regular. No murmurs, gallops, or rubs. ABDOMEN: Soft and nontender. Bowel sounds are present. No organomegaly appreciated. EXTREMITIES: No clubbing or cyanosis. PATENTED HOGSHEAD ASSEMBLER: Awake, alert, and oriented X3. Cranial nerves 2 to 7 intact. There is no fasciculation or atrophy. noted. No focal deficits observed. IMPRESSION: 1. Obstructive sleep apnea-hypopnea syndrome. Patient demonstrated 100% compliance with treatment, benefitting from treatment. Normal respiration on CPAP. 2. Obesity. The patient's weight increased by 8 pounds since previous visit. Body mass index 58.1. Obesity in severe range. 3. Hypertension. 4. Diabetes mellitus. 5. History of anxiety. 6. 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 PLAN: 1. To show that the tube is directed away from her mask to the machine. The machine must stay lower than her head. The patient should get a short tube. 2. Patient will continue to use PAP equipment every night for the whole night. 3. Sleep hygiene with regular time in bed for at least 7-1/2 to 8 hours. 4. Precautions related to driving. No driving if feeling sleepiness. 5. I will maintain all necessary prescription for PAP supplies including mask, tube, filters. 6. Watching weight. 7. Follow-up visit in 6 months or earlier if patient has any problems. Thank you very much for allowing me to participate in the management of your patient. Sincerely, Gentry Matute MD, PhD, FAASM Diplomat of [employer] Sleep Medicine Board of [employer] Medicine Hotel Attendant of [facility] [place] MMODL / NARDAN: [id number] /
== END ==
LOC: SLEEP 15:19
PROVIDERS: ATTEND Internal Medicine
DX: G47.33 Obstructive sleep apnea (adult) (pediatric) (principal); E66.9 Obesity, unspecified; I10 Essential (primary) hypertension; E11.9 Type 2 diabetes mellitus without complications; F41.9 Anxiety disorder, unspecified; Z68.43 Body mass index [BMI] 50.0-59.9, adult; Z79.4 Long term (current) use of insulin; Z79.899 Other long term (current) drug therapy; Z88.6 Allergy status to analgesic agent; Z87.891 Personal history of nicotine dependence

== ENCOUNTER 2021-04-02 06:56 | Day surgery (SDC) | payer BC ==
[2021-03-28 08:52] VITALS: BMI 59.8
[~2021-04-02 06:56] MED LIST changes: -DEXAMETHASONE SOD PHOSPHATE 10 MG/ML 1 ML VIAL IV ONE; -HYDROmorphone 0.5 MG/0.5 ML SYRINGE IVP PRN; -MIDAZOLAM (PF) 2 MG/2 ML VIAL IV PRN; -ONDANSETRON 4 MG/2 ML VIAL IVP ONE; -Pre Op ABX Message 1 EACH MISC MISCELLANE ONE; -SCOPOLAMINE 1.5MG/72HR PATCH TRANSDERM ONE
[2021-04-02 07:33] VITALS: TEMP 97.7
[2021-04-02 07:35] LABS: Glucose,Whole Blood 245 mg/dL (75-99)
[2021-04-02] MEDS ORDERED: MIDAZOLAM 2 MG/2 ML VIAL ONE (07:35)
[2021-04-02] MEDS ORDERED: fentaNYL (PF) 50 MCG/ML 2 ML AMP ONE (07:35)
[2021-04-02] MEDS ORDERED: KETAMINE 10 MG/ML 20 ML VIAL ONE (07:35)
[2021-04-02] MEDS ORDERED: PROPOFOL 10 MG/ML 20 ML VIAL IV ONE (07:35)
[2021-04-02] MEDS ORDERED: LIDOCAINE 1% INJ 10MG/ML (20 ML MDV) ONE (07:35)
--- NOTE | 2021-04-02 07:44 | P.GSHP ---
History of Present Illness H&P Date: 04/02/21 CHIEF COMPLAINT: GERD HISTORY OF PRESENT ILLNESS: The patient is a 45-year-old female who presents reports gastroesophageal reflux disease. Upper endoscopy was offered for further evaluation and management. PAST MEDICAL HISTORY: Please see list. PAST SURGICAL HISTORY: Please see list. MEDICATIONS: Please see list. ALLERGIES: Please see list. SOCIAL HISTORY: No illicit drug use FAMILY HISTORY: No reports of Crohn disease or ulcerative colitis. REVIEW OF ORGAN SYSTEMS: CONSTITUTIONAL: No reports of fevers or chills. GI: Denies any blood in stools or constipation. PHYSICAL EXAM: VITAL SIGNS: Stable GENERAL: Well-developed and pleasant in no acute distress. HEENT: No scleral icterus. Extraocular movements grossly intact. Moist buccal mucosa. NECK: Supple without lymphadenopathy. CHEST: Unlabored respirations. Equal bilateral excursions. CARDIOVASCULAR: Regular rate and rhythm. Distal 2+ pulses. ABDOMEN: Soft, nondistended. MUSCULOSKELETAL: No clubbing, cyanosis, or edema. ASSESSMENT: 1. Gastroesophageal reflux disease PLAN: 1. Recommend proceeding with an upper endoscopy Past Medical History Past Medical History: Asthma, Diabetes Mellitus, Hypertension, Musculoskeletal Disorder, Renal Disease, Sleep Apnea/CPAP/BIPAP Additional Past Medical History / Comment(s): uses CPAP, hx. kidney stones, fatty liver, hx. elevated liver enzymes, pinched nerve left hip, Covid 06/22, renal function 64%. recent issues with difficult swallowing, breathing issues History of Any Multi-Drug Resistant Organisms: None Reported Past Surgical History: Breast Surgery, Cholecystectomy, Orthopedic Surgery Additional Past Surgical History / Comment(s): right breast biopsy, repair right middle finger fx. , fissure repair. lithotripsy Past Anesthesia/Blood Transfusion Reactions: No Reported Reaction Smoking Status: Former smoker - Past Family History Mother Family Medical History: No Reported History Medications and Allergies Home Medications Medication Instructions Recorded Confirmed Type ALPRAZolam [Xanax] 0.25 mg PO Q8HR PRN 07/05/14 04/02/21 History Insulin Detemir [Levemir Flextouch] 50 units SQ HS 01/19/17 04/02/21 History INSULIN ASPART (NovoLOG) [NovoLOG 12 unit SQ BID 08/31/18 04/02/21 History (formulary)] Candesartan/Hydrochlorothiazid 1 each PO DAILY 03/28/21 04/02/21 History [Candesartan/Hydrochlorothiazid 16-12.5 mg] Inhaler (Unk.Name) 1 puff INHALATION DAILY PRN 03/28/21 04/02/21 History Montelukast [Singulair] 10 mg PO DAILY 03/28/21 04/02/21 History Allergies Allergy/AdvReac Type Severity Reaction Status Date / Time aspirin Allergy Unknown Verified 04/02/21 07:18 duloxetine [From Cymbalta] Allergy Rash/Hives Verified 04/02/21 07:18 acetaminophen AdvReac elevated Verified 04/02/21 07:18 liver enzymes Surgical - Exam Vital Signs Temp Pulse Resp BP Pulse Ox 97.7 F 91 18 129/87 99 04/02/21 07:24 04/02/21 07:24 04/02/21 07:24 04/02/21 07:24 04/02/21 07:24 Results - Labs Abnormal Lab Results - Last 24 Hours (Table) 04/02/21 Range/Units 07:32 POC Glucose (mg/dL) 245 H (75-99) mg/dL
[2021-04-02 07:59] VITALS: RESP 16
--- NOTE | 2021-04-02 08:02 | P.PCN ---
Date of Procedure: 04/02/21 Description of Procedure: PREOPERATIVE DIAGNOSIS: Dysphagia Gastroesophageal reflux disease. Morbid obesity due to excess calories, BMI 60.1 POSTOPERATIVE DIAGNOSIS: Gastric polyps Gastroesophageal reflux disease with erosive esophagitis Duodenal adenoma, second portion OPERATION: Esophagogastroduodenoscopy with hot snare polypectomy duodenal Esophagogastroduodenoscopy with biopsies along antrum. SURGEON: Sherin Moncada MD ANESTHESIA: MAC. INDICATIONS: The patient is a 45-year-old female who presents with a history of reflux disease and dysphagia. Benefits and risks of the procedure were described. Informed consent was obtained. DESCRIPTION: The patient was brought into the endoscopy suite and laid in the left lateral decubitus position. An Olympus gastroscope was passed along the posterior oropharynx down to the distal esophagus where the squamocolumnar junction was encountered at 37 cm from the incisors. The stomach was entered and no bile reflux was found. Additional findings are listed below. Biopsies with cold forceps were obtained of the antrum. The first through third portion of the duodenum was examined and remarkable 2 adenomas, 5 mm at 8:00 and 6:00 along the second portion of the duodenum. Retroflexion of the scope confirmed Hill grade 1 lower esophageal valve. The squamocolumnar junction demonstrated LA grade B erosive esophagitis. The stomach was desufflated. The patient tolerated the procedure well. FINDINGS: Squamocolumnar junction 37 cm from the incisors. Diaphragmatic hiatus at 37 cm. Hill grade 2 lower esophageal valve. LA grade A erosive esophagitis. Few gastric polyps, 6 mm 2 and hyperplastic along the gastric body Remarkable duodenal adenomas x 2, 5 mm at 10:00 and 6:00 along the second portion of the duodenum with snare polypectomy at 10:00 RECOMMENDATIONS: Repeat upper endoscopy in 3 months Plan - Discharge Summary Discharge Rx Participant: No New Discharge Prescriptions: Continue ALPRAZolam [Xanax] 0.25 mg PO Q8HR PRN PRN Reason: Anxiety Insulin Detemir [Levemir Flextouch Pen] 50 units SQ HS INSULIN ASPART (NovoLOG) [NovoLOG (formulary)] 12 unit SQ BID Montelukast [Singulair] 10 mg PO DAILY Candesartan/Hydrochlorothiazid [Candesartan/Hydrochlorothiazid 16-12.5 mg] 1 each PO DAILY Inhaler (Unk.Name) 1 puff INHALATION DAILY PRN PRN Reason: Dyspnea Discharge Medication List ALPRAZolam [Xanax] 0.25 mg PO Q8HR PRN 07/05/14 [History] Insulin Detemir [Levemir Flextouch Pen] 50 units SQ HS 01/19/17 [History] INSULIN ASPART (NovoLOG) [NovoLOG (formulary)] 12 unit SQ BID 08/31/18 [History] Candesartan/Hydrochlorothiazid [Candesartan/Hydrochlorothiazid 16-12.5 mg] 1 each PO DAILY 03/28/21 [History] Inhaler (Unk.Name) 1 puff INHALATION DAILY PRN 03/28/21 [History] Montelukast [Singulair] 10 mg PO DAILY 03/28/21 [History] Follow up Appointment(s)/Referral(s): Sherin Moncada MD [STAFF PHYSICIAN] - 04/15/21 Patient Instructions/Handouts: Gastritis (DC) Discharge Disposition: HOME SELF-CARE
[2021-04-02 08:36] LABS: Glucose,Whole Blood 258 mg/dL (75-99)
[2021-04-02] MEDS ORDERED: INSULIN ASPART (NovoLOG) 100 UNIT/ML VIAL SQ ONE (08:43)
[2021-04-02 08:47] VITALS: BP 115/75; PULSE 88
[2021-04-02 09:10] LABS: Glucose,Whole Blood 250 mg/dL (75-99)
== END 2021-04-02 09:35 | disposition home or self-care (01) ==
LOC: ORWHC2ENDO 06:56
PROVIDERS: ATTEND Surgery Plastic and Reconstructive Surgery
DX: K29.50 Unspecified chronic gastritis without bleeding (principal); K31.7 Polyp of stomach and duodenum; K21.00 Gastro-esophageal reflux disease with esophagitis, without bleeding; K22.10 Ulcer of esophagus without bleeding; E66.01 Morbid (severe) obesity due to excess calories; Z68.44 Body mass index [BMI] 60.0-69.9, adult; J45.909 Unspecified asthma, uncomplicated; E11.9 Type 2 diabetes mellitus without complications; I10 Essential (primary) hypertension; N28.9 Disorder of kidney and ureter, unspecified; Z87.442 Personal history of urinary calculi; G47.33 Obstructive sleep apnea (adult) (pediatric); K76.0 Fatty (change of) liver, not elsewhere classified; G58.9 Mononeuropathy, unspecified; Z86.16 Personal history of COVID-19; Z90.49 Acquired absence of other specified parts of digestive tract; Z98.890 Other specified postprocedural states; Z87.891 Personal history of nicotine dependence; Z79.4 Long term (current) use of insulin; Z79.899 Other long term (current) drug therapy; Z88.6 Allergy status to analgesic agent; Z88.8 Allergy status to other drugs, medicaments and biological substances
CPT/HCPCS: 81025; 43239; 43251; J2250; J2001; J3010; J2704; 88305

== ENCOUNTER → 2021-09-11 | Outpatient (CLI) | payer BC ==
--- NOTE | 2021-09-11 21:10 | SFUN ---
SLEEP CENTER FOLLOW UP NOTE DATE OF SERVICE: 09/11/2021. 46-year-old lady has been followed in Sleep Center for treatment of obstructive sleep apnea-hypopnea syndrome. The patient continues to use her CPAP equipment every night for the whole night. Recently started to feel some kind of unusual smell from the machine. [place] Sleepiness Scale today is 1. The patient prefers to keep temperature in the tube in the low range. I checked her CPAP unit, it is in automatic regimen and pressure range from 5-20 cm of water. Average 11 cm of water. Regulation of humidity is on manual. Humidity level is at 3 and temperature in heated tube at 63 Fahrenheit which is low range. Usage 30/30 nights for more than 4 hours, average 8.2 hours per night, which is great compliance. Leak is only 2 L/minute. Apnea-hypopnea index is 1.2 which is totally normal. MEDICATIONS: Omeprazole 20 mg once a day, hydrochlorothiazide once a day, alprazolam 0.25 mg once a day, magnesium, vitamin D3 supplements, montelukast once a day. Valery once a day, albuterol as needed. PHYSICAL EXAMINATION: GENERAL: Patient in no distress. BP 124/83, HR 91, RR 16, weight 336 pounds, height 5 feet 4 inches. Patient lost 3 pounds of weight, temperature 97, oxygen saturation room air 98%. Oropharynx: Low position of soft palate, Mallampati 3-4. NECK: Supple, no JVD. Thyroid is not palpable. LUNGS: Clear to percussion and to auscultation. Good air exchange. No wheezing or rhonchi. HEART: S1, S2 regular. No murmurs, gallops, or rubs. ABDOMEN: Obese. Soft and nontender. Bowel sounds are present. No organomegaly appreciated. EXTREMITIES: No clubbing or cyanosis. WEB SITE DEVELOPER: Awake, alert, and oriented X3. Cranial nerves 2 to 7 intact. There is no fasciculation or atrophy. noted. No focal deficits observed. IMPRESSION: 1. Obstructive sleep apnea-hypopnea syndrome. Patient demonstrated great compliance with treatment. Normal respiration on CPAP. The patient sometimes feels some unusual smell from CPAP unit. 2. Obesity. 3. Hypertension. 4. Diabetes mellitus. 5. History of anxiety. 6. 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 PLAN: 1. Check and replace CPAP unit if necessary. Prescription was written. 2. Patient will start using regular tube instead of heated tube. 3. If CPAP unit will be replaced, follow-up visit in 30-90 days. If machine will not be replaced, in 6 months. 4. Patient will continue to use PAP equipment every night for the whole night. 5. Sleep hygiene with regular time in bed for at least 7-1/2 to 8 hours. 6. Precautions related to driving. No driving if feeling sleepiness. 7. I will maintain all necessary prescription for PAP supplies including mask, tube, filters. 8. Watching weight. 9. Follow-up visit in 6 months or earlier if patient has any problems. Thank you very much for allowing me to participate in management of your patient. Sincerely, Gentry Mattue MD, PhD, FAASM Diplomat of [employer] Sleep Medicine Board of [place] [employer] Well [employer] [facility] [place] MMODL / NARDAN: [id number] /
== END ==
LOC: SLEEP 15:36
PROVIDERS: ATTEND Internal Medicine
DX: G47.33 Obstructive sleep apnea (adult) (pediatric) (principal); E66.9 Obesity, unspecified; I10 Essential (primary) hypertension; E11.9 Type 2 diabetes mellitus without complications; F41.9 Anxiety disorder, unspecified; Z99.89 Dependence on other enabling machines and devices; Z87.891 Personal history of nicotine dependence; Z88.6 Allergy status to analgesic agent

== ENCOUNTER 2021-10-24 09:19 | Emergency (ER) | payer BC ==
[2021-10-24 09:26] VITALS: TEMP 98
[2021-10-24] MEDS ORDERED: SODIUM CHLORIDE 0.9% 500 ML 500 ML IV STA (09:40)
[2021-10-24] MEDS ORDERED: KETOROLAC 15 MG/ML 1 ML VIAL IVP STA (09:40)
--- NOTE | 2021-10-24 09:45 | ED ---
General Adult HPI - General Chief complaint: Abdominal Pain Stated complaint: abd & side pain Time Seen by Provider: 10/24/21 09:35 Source: patient, RN notes reviewed, old records reviewed Mode of arrival: ambulatory Limitations: no limitations - History of Present Illness Initial comments: 46-year-old female presents with complaints of epigastric, left upper and mid lower abdominal pain for 2 weeks. Patient states that she went to urgent care and had lab work urinalysis and x-ray done and was told to come to the emergency room with any new or concerning symptoms. She does have an appointment with her primary care doctor on November 06, diabetes, asthma, renal disease and surgical history of a cholecystectomy. She states that the pain is still having and worse when she is in her left side. She states to light palpation and it is painful 7 out of 10. -: week(s) (2) Location: abdomen Radiation: non-radiation Severity scale (1-10): 7 Quality: sharp Consistency: constant Improves with: none Worsens with: other (palpation, left side lying) Associated Symptoms: denies other symptoms Treatments Prior to Arrival: other (Urgent care labs and x-ray) - Related Data Home Medications Medication Instructions Recorded Confirmed ALPRAZolam [Xanax] 0.25 mg PO Q8HR PRN 07/05/14 04/02/21 Insulin Detemir [Levemir Flextouch 50 units SQ HS 01/19/17 04/02/21 Pen] INSULIN ASPART (NovoLOG) [NovoLOG 12 unit SQ BID 08/31/18 04/02/21 (formulary)] Candesartan/Hydrochlorothiazid 1 each PO DAILY 03/28/21 04/02/21 [Candesartan/Hydrochlorothiazid 16-12.5 mg] Inhaler (Unk.Name) 1 puff INHALATION DAILY PRN 03/28/21 04/02/21 Montelukast [Singulair] 10 mg PO DAILY 03/28/21 04/02/21 Previous Rx's Medication Instructions Recorded Omeprazole [PriLOSEC] 40 mg PO DAILY #14 cap 04/15/21 Allergies Allergy/AdvReac Type Severity Reaction Status Date / Time aspirin Allergy Unknown Verified 10/24/21 09:25 duloxetine [From Cymbalta] Allergy Rash/Hives Verified 10/24/21 09:25 acetaminophen AdvReac elevated Verified 10/24/21 09:25 liver enzymes Review of Systems ROS Statement: Those systems with pertinent positive or pertinent negative responses have been documented in the HPI. ROS Other: All systems not noted in ROS Statement are negative. Past Medical History Past Medical History: Asthma, Diabetes Mellitus, Hypertension, Musculoskeletal Disorder, Renal Disease, Sleep Apnea/CPAP/BIPAP Additional Past Medical History / Comment(s): uses CPAP, hx. kidney stones, fatty liver, hx. elevated liver enzymes, pinched nerve left hip, Covid 06/22, renal function 64%. recent issues with difficult swallowing, breathing issues History of Any Multi-Drug Resistant Organisms: None Reported Past Surgical History: Breast Surgery, Cholecystectomy, Orthopedic Surgery Additional Past Surgical History / Comment(s): right breast biopsy, repair right middle finger fx. , fissure repair. lithotripsy Past Anesthesia/Blood Transfusion Reactions: No Reported Reaction Past Psychological History: Anxiety Smoking Status: Former smoker Past Alcohol Use History: None Reported Past Drug Use History: None Reported - Past Family History Mother Family Medical History: No Reported History General Exam Limitations: no limitations General appearance: alert, in no apparent distress Head exam: Present: atraumatic, normocephalic Neck exam: Present: normal inspection. Absent: tenderness, meningismus, lymphadenopathy, thyromegaly Respiratory exam: Present: normal lung sounds bilaterally. Absent: respiratory distress, wheezes, rales, rhonchi, stridor, chest wall tenderness, accessory muscle use Cardiovascular Exam: Present: regular rate, normal heart sounds GI/Abdominal exam: Present: soft, distended (obese), tenderness (epigastric, luq, mid lower). Absent: guarding, rebound, rigid Extremities exam: Present: normal inspection, normal capillary refill. Absent: pedal edema Back exam: Present: normal inspection, full ROM. Absent: tenderness, CVA tenderness (R), CVA tenderness (L), rash noted Neurological exam: Present: alert, oriented X3, normal gait Psychiatric exam: Present: normal affect, normal mood Skin exam: Present: warm, dry, intact, normal color. Absent: rash, cyanosis, diaphoretic, petechiae, pallor Course Vital Signs 10/24/21 10/24/21 09:22 11:25 Temperature 98 F Pulse Rate 98 82 Respiratory 18 16 Rate Blood Pressure 108/73 118/67 O2 Sat by Pulse 98 100 Oximetry Medical Decision Making - Medical Decision Making Patient presents 2 weeks of left upper abdominal pain CT shows fatty liver which patient aware of and splenomegaly is noted. There is a nonobstructive nephrolithiasis on the right. There is no evidence of leukocytosis, hemoglobin and hematocrit are stable. BUN and creatinine elevated at 18 and 1.11 patient does have history of kidney disease. Blood glucose level is elevated and she was given IV fluids. I did direct her to follow up with her primary care regarding her hyperglycemia. At this time I do not have a source for the patient's pain. The patient's abdomen is soft. There is no right lower quadrant pain. She has a history of cholecystectomy. Vital signs are stable. She was instructed to return to emergency room if any new or concerning symptoms. Follow-up with her primary care doctor next week. Patient is agreeable to this plan of care. - Lab Data Result diagrams: 10/24/21 09:59 10/24/21 09:59 Lab Results 10/24/21 10/24/21 10/24/21 Range/Units 09:59 09:59 09:59 WBC 6.0 (3.8-10.6) k/uL RBC 3.93 (3.80-5.40) m/uL Hgb 11.1 L (11.4-16.0) gm/dL Hct 34.1 (34.0-46.0) % MCV 86.7 (80.0-100.0) fL MCH 28.4 (25.0-35.0) pg MCHC 32.7 (31.0-37.0) g/dL RDW 13.8 (11.5-15.5) % Plt Count 194 (150-450) k/uL MPV 8.7 Neutrophils % 57 % Lymphocytes % 25 % Monocytes % 5 % Eosinophils % 12 % Basophils % 1 % Neutrophils # 3.4 (1.3-7.7) k/uL Lymphocytes # 1.5 (1.0-4.8) k/uL Monocytes # 0.3 (0-1.0) k/uL Eosinophils # 0.7 (0-0.7) k/uL Basophils # 0.0 (0-0.2) k/uL PT 10.5 (9.0-12.0) sec INR 1.0 (<1.2) APTT 21.3 L (22.0-30.0) sec Sodium (137-145) mmol/L Potassium (3.5-5.1) mmol/L Chloride (98-107) mmol/L Carbon Dioxide (22-30) mmol/L Anion Gap mmol/L BUN (7-17) mg/dL Creatinine (0.52-1.04) mg/dL Est GFR (CKD-EPI)AfAm (>60 ml/min/1.73 sqM) Est GFR (CKD-EPI)NonAf (>60 ml/min/1.73 sqM) Glucose (74-99) mg/dL Plasma Lactic Acid Som (0.7-2.0) mmol/L Calcium (8.4-10.2) mg/dL Total Bilirubin (0.2-1.3) mg/dL AST (14-36) U/L ALT (4-34) U/L Alkaline Phosphatase (38-126) U/L C-Reactive Protein (<1.0) mg/dL Total Protein (6.3-8.2) g/dL Albumin (3.5-5.0) g/dL Amylase (30-110) U/L Lipase (23-300) U/L Urine Color Yellow Urine Appearance Turbid H (Clear) Urine pH 5.5 (5.0-8.0) Ur Specific [place] 1.025 (1.001-1.035) Urine Protein Trace H (Negative) Urine Glucose (UA) Negative (Negative) Urine Ketones 1+ H (Negative) Urine Blood Small H (Negative) Urine Nitrite Negative (Negative) Urine Bilirubin Negative (Negative) Urine Urobilinogen <2.0 (<2.0) mg/dL Ur Leukocyte Esterase Moderate H (Negative) Urine RBC 9 H (0-5) /hpf Urine WBC 10 H (0-5) /hpf Ur Squamous Epith Cells 14 H (0-4) /hpf Urine Bacteria Few H (None) /hpf Urine Mucus Few H (None) /hpf 10/24/21 10/24/21 Range/Units 09:59 09:59 WBC (3.8-10.6) k/uL RBC (3.80-5.40) m/uL Hgb (11.4-16.0) gm/dL Hct (34.0-46.0) % MCV (80.0-100.0) fL MCH (25.0-35.0) pg MCHC (31.0-37.0) g/dL RDW (11.5-15.5) % Plt Count (150-450) k/uL MPV Neutrophils % % Lymphocytes % % Monocytes % % Eosinophils % % Basophils % % Neutrophils # (1.3-7.7) k/uL Lymphocytes # (1.0-4.8) k/uL Monocytes # (0-1.0) k/uL Eosinophils # (0-0.7) k/uL Basophils # (0-0.2) k/uL PT (9.0-12.0) sec INR (<1.2) APTT (22.0-30.0) sec Sodium 136 L (137-145) mmol/L Potassium 4.3 (3.5-5.1) mmol/L Chloride 105 (98-107) mmol/L Carbon Dioxide 25 (22-30) mmol/L Anion Gap 6 mmol/L BUN 18 H (7-17) mg/dL Creatinine 1.11 H (0.52-1.04) mg/dL Est GFR (CKD-EPI)AfAm 69 (>60 ml/min/1.73 sqM) Est GFR (CKD-EPI)NonAf 60 (>60 ml/min/1.73 sqM) Glucose 256 H (74-99) mg/dL Plasma Lactic Acid Som 1.1 (0.7-2.0) mmol/L Calcium 8.6 (8.4-10.2) mg/dL Total Bilirubin 0.8 (0.2-1.3) mg/dL AST 78 H (14-36) U/L ALT 100 H (4-34) U/L Alkaline Phosphatase 114 (38-126) U/L C-Reactive Protein 0.5 (<1.0) mg/dL Total Protein 7.0 (6.3-8.2) g/dL Albumin 3.6 (3.5-5.0) g/dL Amylase 41 (30-110) U/L Lipase 101 (23-300) U/L Urine Color Urine Appearance (Clear) Urine pH (5.0-8.0) Ur Specific [place] (1.001-1.035) Urine Protein (Negative) Urine Glucose (UA) (Negative) Urine Ketones (Negative) Urine Blood (Negative) Urine Nitrite (Negative) Urine Bilirubin (Negative) Urine Urobilinogen (<2.0) mg/dL Ur Leukocyte Esterase (Negative) Urine RBC (0-5) /hpf Urine WBC (0-5) /hpf Ur Squamous Epith Cells (0-4) /hpf Urine Bacteria (None) /hpf Urine Mucus (None) /hpf Disposition Clinical Impression: Abdominal pain Disposition: HOME SELF-CARE Condition: Good Instructions (If sedation given, give patient instructions): Abdominal Pain (ED) Additional Instructions: Today we completed a workup for your abdominal pain. Sometimes we do not always find a cause for your symptoms at an ER visit. The findings on your exam today including your blood work and CAT scan are reassuring. At this time is not 100% certain what is causing your symptoms but we feel you can be discharged home. If you develope new or concerning symptoms or you worsen, return to the emergency room otherwise follow-up with your primary care doctor next week, you may need further evaluation with a home care giver. Is patient prescribed a controlled substance at d/c from ED?: No Referrals: Kelvin Francis DO [Primary Care Provider] - 1-2 days Time of Disposition: 12:02
[2021-10-24 10:11] LABS: Basophils % (A) 1 %; Eosinophils # (A) 0.7 k/uL (0-0.7); Eosinophils % (A) 12 %; HCT 34.1 % (34.0-46.0); HGB 11.1 gm/dL (11.4-16.0); Lymphocytes # (A) 1.5 k/uL (1.0-4.8); Lymphocytes % (A) 25 %; MCH 28.4 pg (25.0-35.0); MCHC 32.7 g/dL (31.0-37.0); MCV 86.7 fL (80.0-100.0); Mean Platelet Volume 8.7; Monocytes # (A) 0.3 k/uL (0-1.0); Monocytes % (A) 5 %; Neutrophils # (A) 3.4 k/uL (1.3-7.7); Neutrophils % (A) 57 %; Platelet Count 194 k/uL (150-450); RBC 3.93 m/uL (3.80-5.40); RDW 13.8 % (11.5-15.5)
[2021-10-24 10:18] LABS: Appearance,Urine Turbid (Clear); Bacteria,Urine Few /hpf; Bilirubin,Urine Negative (Negative); Blood,Urine Small (Negative); Color,Urine Yellow; Glucose,Urine (UA) Negative (Negative); Ketones,Urine 1+ (Negative); Leukocyte Esterase,Urine Moderate (Negative); Mucus,Urine Few /hpf; Nitrite,Urine Negative (Negative); PH, Urine 5.5 (5.0-8.0); Protein,Urine Trace (Negative); RBC,Urine 9 /hpf (0-5); Specific Gravity,Urine 1.025 (1.001-1.035); Squamous Epithelial Cell,Urine 14 /hpf (0-4); Urobilinogen,Urine <2.0 mg/dL (<2.0); WBC,Urine 10 /hpf (0-5)
[2021-10-24 10:29] LABS: Albumin 3.6 g/dL (3.5-5.0)
[2021-10-24 10:33] LABS: C Reactive Protein 0.5 mg/dL (<1.0); Calcium 8.6 mg/dL (8.4-10.2); Potassium 4.3 mmol/L (3.5-5.1); Total Bilirubin 0.8 mg/dL (0.2-1.3)
[2021-10-24 10:38] LABS: Prothrombin Time 10.5 sec (9.0-12.0)
[2021-10-24] MEDS ORDERED: MORPHINE SULFATE 4 MG/ML SYRINGE IVP STA (10:52)
--- NOTE | 2021-10-24 10:57 | CT ---
EXAMINATION TYPE: CT abdomen pelvis wo con DATE OF EXAM: 10/24/2021 COMPARISON: CT 01/19/2017 HISTORY: Abdominal pain CT DLP: 2002.9 mGycm Automated exposure control for dose reduction was used. TECHNIQUE: Helical acquisition of images from the lung bases through the pelvis. FINDINGS: Lack of intravenous contrast could compromise sensitivity LUNG BASES: No significant abnormality is appreciated. AORTA: No significant abnormality is appreciated. LIVER/GB: Patient is post cholecystectomy. Liver shows low attenuation likely due to hepatic steatosi s, suspect some focal fatty sparing adjacent to the gallbladder fossa PANCREAS: No significant abnormality is seen. SPLEEN: Enlarged ADRENALS: No significant abnormality is seen. KIDNEYS: Nonobstructive calculus is present within the anterior calyx mid to upper pole of the right kidney which is increased in size and now measures approximately 11 to 12 mm REPRODUCTIVE ORGANS: No significant abnormality is seen. URINARY BLADDER: No significant abnormality is seen. BOWEL: There is no bowel obstruction. Appendix is normal. FREE AIR: No Free Air is visible. ASCITES: None visible. PELVIC ADENOPATHY: None visualized. RETROPERITONEAL ADENOPATHY: No Retroperitoneal Adenopathy visible. OSSEOUS STRUCTURES: No significant abnormality is seen. IMPRESSION: HEPATIC STEATOSIS. SPLENOMEGALY. NONOBSTRUCTIVE NEPHROLITHIASIS ON THE RIGHT. NONCONTRAST EXAM.
[2021-10-24 10:58] LABS: Partial Thromboplastin Time 21.3 sec (22.0-30.0)
[2021-10-24 11:30] VITALS: BP 118/67; PULSE 82; RESP 16
[2021-10-24] MEDS ORDERED: methylPREDNISolone SOD SUCCI 125 MG/2 ML VIAL IV STA (11:58)
== END 2021-10-24 12:29 | disposition home or self-care (01) ==
LOC: EC 09:19
DX: R10.12 Left upper quadrant pain (principal); R10.13 Epigastric pain; R10.30 Lower abdominal pain, unspecified; E11.9 Type 2 diabetes mellitus without complications; I10 Essential (primary) hypertension; J45.909 Unspecified asthma, uncomplicated; F41.9 Anxiety disorder, unspecified; Z87.891 Personal history of nicotine dependence; Z79.4 Long term (current) use of insulin; Z79.899 Other long term (current) drug therapy
CPT/HCPCS: 36415; 80053; 82150; 83605; 83690; 85025; 85610; 85730; 86140; 81001; 74176; 99284; 96374; 96375; 96361 ×2; J2270; J2930

== ENCOUNTER → 2021-11-06 | Outpatient (CLI) | payer BC ==
--- NOTE | 2021-11-06 08:38 | US ---
EXAMINATION TYPE: US abdomen complete DATE OF EXAM: 11/06/2021 COMPARISON: Recent CT October 24, 2021 CLINICAL HISTORY: R10.12 Left upper quadrant pain. LUQ pain. Hx cholecystectomy. EXAM MEASUREMENTS: Liver Length: 18.2 cm CBD: 0.75 cm Spleen: 14.1 cm Right Kidney: 10.8 x 5.5 x 3.5 cm Left Kidney: 13.3 x 5.7 x 5.7 cm Exam is limited due to gas and patient body habitus. Pancreas: Limited visibility of tail. Appears hyperechoic. Liver: Appears coarse and enlarged with increased echogenicity and attenuation. Gallbladder: Surgically absent. Evidence for sonographic Beavers's sign: No CBD: Portions seen appear wnl post-cholecystectomy. Spleen: Appears enlarged. Isoechoic area seen adjacent to the spleen: 1.5 x 1.7 x 1.7 cm. Right Kidney: Hypoechoic, indistinct area seen around kidney border anteriorly. Hypoechoic area seen upper pole: 1.5 x 1.4 x 1.3 cm. Anechoic area seen upper pole: 1.3 x 1.0 x 1.1 cm. Left Kidney: Appears enlarged. Hypoechoic, indistinct area seen around kidney border anteriorly. Upper IVC: Appears wnl Abd Aorta: Distal and iliacs are obscured. Portions seen appear wnl. Exam suboptimal due to large body habitus. No aneurysm in the visualized proximal or mid abdominal ao rta. Suboptimal evaluation of the distal abdominal aorta. IVC visualized near the hepatic dome. Visua lized liver heterogeneously hyperechoic correlating with recent CT. No suspicious masses or ductal di latation on images saved. No surrounding ascites. Right kidney shows no hydronephrosis. Technologist jurado to adjacent just over 1.0 cm round hypoechoi c to anechoic lesions favoring benign thin-walled cysts at upper pole level in the right kidney less well seen on noncontrast CT. Calculi in the right kidney including dominant near 1.0 cm calculus on C T not clearly identified on ultrasound. Generalized pancreas shows no worrisome mass or ductal dilata tion with poor visualization of distal body and tail due to overlying bowel gas. Splenomegaly is redemonstrated without surrounding ascites. No left-sided hydronephrosis or suspiciou s masses. Asymmetric enlargement of left kidney is noted correlating with CT. The common bile duct wi thin normal limits after cholecystectomy. Gallbladder is surgically absent. There is 1.5 cm splenule marked towards end of study correlating with CT axial image 54. IMPRESSION: 1. Suboptimal study, source of left upper quadrant pain not clearly identified. 2. Heterogeneous hyperechoic appearance of liver consistent with diffuse fatty infiltration and/or un derlying hepatocellular disease. Splenomegaly is noted. 3. Significant differences in size of both kidneys. Diminished size to right kidney versus left kidne y favoring product of chronic medical renal disease and suggesting diminished function versus left si de.
== END | disposition home or self-care (01) ==
LOC: RADUSWWP 06:56
PROVIDERS: ATTEND Family Medicine
DX: R16.1 Splenomegaly, not elsewhere classified (principal); K76.89 Other specified diseases of liver; Z90.49 Acquired absence of other specified parts of digestive tract
CPT/HCPCS: 76700

== ENCOUNTER → 2022-03-11 | Outpatient (CLI) | payer BC ==
--- NOTE | 2022-03-20 09:35 | MM ---
Reason for Exam: Screening (asymptomatic). Last mammogram was performed 2 year(s) and 7 month(s) ago. Patient History: Menarche at age 9. Patient has no children. Premenopausal. 1994, Benign Excisional Biopsy on the right side. Last menstrual period: 03/11/2022 Risk Values: Becca 5 year model risk: 1.5%. NCI Lifetime model risk: 13.6%. Prior Study Comparison: 06/18/2015 Bilateral Diagnostic Mammogram, [facility]. 05/23/2018 Bilateral Screening Mammogram, [facility]. 08/18/2019 Bilateral Screening Mammogram, [facility]. Tissue Density: The breast tissue is almost entirely fat. Findings: Analyzed By CAD. There is no suspicious group of microcalcifications or new suspicious mass in either breast. Overall Assessment: Negative, BI-RAD 1 Management: Screening Mammogram of both breasts in 1 year. A clinical breast exam by your physician is recommended on an annual basis and results should be correlated with mammographic findings. Electronically signed and approved by: Isauro Duran M.D. Radiologis
== END | disposition home or self-care (01) ==
LOC: RADMAMWWP 07:10
PROVIDERS: ATTEND Nurse Practitioner Family
DX: Z12.31 Encounter for screening mammogram for malignant neoplasm of breast (principal); R47.01 Aphasia
CPT/HCPCS: 77063; 77067

== ENCOUNTER → 2022-04-30 | Outpatient (CLI) | payer BC ==
--- NOTE | 2022-04-30 15:43 | P.PN ---
Subjective DATE: 04/30/2022 FOLLOW UP VISIT. Patient with obstructive sleep apnea hypopnea syndrome return to sleep center for follow-up visit. Information from previous visit have been reviewed. Patient recently received new CPAP unit. She likes new machine. Patient is using PAP equipment every night for the whole night, getting PAP supplies in time. The patient does not have significant problems with the mask, PAP unit and humidification. [place] sleepiness scale is 0, which is perfect. I checked information from PAP unit. PAP unit pressure 5-15, average 14.0 cm H2O. Usage is 100 % for more then 4 hours, average 7.6 hours per night. Leak is 11.9 l/m, which is in acceptable range. Apnea Hypopnea Index is 1.7, which is perfect. MEDICATIONS:1. Omeprazole 20 mg once a day 2. Hydrochlorothiazide 3. Alprazolam 0.25 mg once a day 4. Montelucast 5. Valery 6. Albuterol as needed During physical exam: GENERAL: A pleasant patient without any distress. VITAL SIGNS: BP 132/70, HR 100, RR 16, weight 336, temperature 98.6, oxygen saturation at room air 97 % . HEENT: PERRLA, EOMI.low position of soft palate, Mallapati 3-4 . NECK: Supple. No JVD. LUNGS: Clear to percussion and to auscultation. Good air exchange. No wheezing or rhonchi. HEART: S1, S2 regular. ABDOMEN: Soft and nontender. Obese EXTREMITIES: No clubbing or cyanosis. ROASTERMAN: Awake, alert, and oriented x3. No focal deficit. Impressions: 1. Obstructive sleep apnea-hypopnea syndrome. Patient demonstrated great compliance with treatment, benefiting from treatment. 2. Obesity. 3. Hypertension. 4. History of anxiety. 5. History of diabetes mellitus. Plan: 1. Continue using PAP equipment every night for the whole night. 2. To change air filter at least 1-2 times per month. 3. PAP unit should stay lower then position of the head. 4. Advised patient to remove all remaining water from humidifier canister daily and make it dry after each usage. Refill canister with fresh distilled water b efore each usage. 5. Sleep hygiene with regular time in bed for at least 8 hours. 6. Precautions related to driving. No driving if feel any sleepiness. 7. I will maintain prescription for PAP supplies including mask, tube, filters. 8. Follow up visit in 6 months or earlier if patient has any problems. 9. Watching and losing weight. Thank you very much for allowing me to participate in the management of your patient. Gentry Matute MD, PhD, FAASM. Diplomat of [place] [employer], Sleep Medicine Board by [place] [employer] Assessor of [facility] [place]
== END ==
LOC: SLEEP 15:11
PROVIDERS: ATTEND Internal Medicine
DX: G47.33 Obstructive sleep apnea (adult) (pediatric) (principal); E66.9 Obesity, unspecified; I10 Essential (primary) hypertension; F41.9 Anxiety disorder, unspecified; E11.9 Type 2 diabetes mellitus without complications; Z88.6 Allergy status to analgesic agent; Z88.8 Allergy status to other drugs, medicaments and biological substances; Z87.891 Personal history of nicotine dependence; Z99.89 Dependence on other enabling machines and devices
CPT/HCPCS: 99212

== ENCOUNTER 2022-06-10 08:44 | Emergency (ER) | payer BC ==
[2022-06-10 09:02] VITALS: TEMP 98
[2022-06-10] MEDS ORDERED: DEXAMETHASONE SOD PHOSPHATE 10 MG/ML 1 ML VIAL IM STA (09:09)
--- NOTE | 2022-06-10 09:15 | ED ---
Headache HPI - General Chief Complaint: Headache Stated Complaint: numbness lt side of face Time Seen by Provider: 06/10/22 09:04 Source: patient, RN notes reviewed, old records reviewed Mode of arrival: ambulatory Limitations: no limitations - History of Present Illness Initial Comments: This is a nontoxic-appearing 46-year-old female that presents to the emergency room ambulatory with complaints of a left-sided frontal headache and numbness to the left side of her face that started at 8 AM. She states it's worse with palpation but feels numb at the same time. States that she recently had an upper respiratory infection last week that she is recovering from. Denies any fevers, no nausea vomiting or diarrhea. No vision changes. She states she has a history of chronic kidney disease and fatty liver disease and unable to take Tylenol or Motrin. MD Complaint: headache -: hour(s) (0800) Onset Description: sudden Location: left, frontal, facial Severity scale (1-10): 7 Quality: constant, different than previous headaches Consistency: constant Improves With: nothing Worsens With: other (palpation) Treatments Prior to Arrival: none - Related Data Home Medications Medication Instructions Recorded Confirmed ALPRAZolam [Xanax] 0.25 mg PO Q8HR PRN 07/05/14 06/01/22 Insulin Detemir [Levemir Flextouch 50 units SQ HS 01/19/17 06/01/22 Pen] INSULIN ASPART (NovoLOG) [NovoLOG 12 unit SQ BID 08/31/18 06/01/22 (formulary)] Candesartan/Hydrochlorothiazid 1 each PO DAILY 03/28/21 06/01/22 [Candesartan/Hydrochlorothiazid 16-12.5 mg] Ergocalciferol [Vitamin D2 (1250 5,000 unit PO DAILY 06/01/22 06/01/22 Mcg = 44822 Iu)] Previous Rx's Medication Instructions Recorded Amoxic-Pot Clav 875-125Mg 1 tab PO BID 7 Days #14 tab 06/10/22 [Augmentin 875-125] Allergies Allergy/AdvReac Type Severity Reaction Status Date / Time aspirin Allergy Unknown Verified 06/10/22 09:02 duloxetine [From Cymbalta] Allergy Rash/Hives Verified 06/10/22 09:02 tirzepatide [From Mounjaro] Allergy Unknown Verified 06/10/22 09:02 acetaminophen AdvReac elevated Verified 06/10/22 09:02 liver enzymes omeprazole AdvReac Unknown Verified 06/10/22 09:02 Review of Systems ROS Statement: Those systems with pertinent positive or pertinent negative responses have been documented in the HPI. ROS Other: All systems not noted in ROS Statement are negative. Past Medical History Past Medical History: Asthma, Diabetes Mellitus, Hypertension, Musculoskeletal Disorder, Renal Disease, Sleep Apnea/CPAP/BIPAP Additional Past Medical History / Comment(s): uses CPAP, hx. kidney stones, fatty liver, hx. elevated liver enzymes, pinched nerve left hip, Covid 06/22, renal function 64%. recent issues with difficult swallowing, breathing issues History of Any Multi-Drug Resistant Organisms: None Reported Past Surgical History: Breast Surgery, Cholecystectomy, Orthopedic Surgery Additional Past Surgical History / Comment(s): right breast biopsy, repair right middle finger fx. , fissure repair. lithotripsy Past Anesthesia/Blood Transfusion Reactions: No Reported Reaction Past Psychological History: Anxiety Smoking Status: Former smoker Past Alcohol Use History: None Reported Past Drug Use History: Marijuana - Past Family History Mother Family Medical History: No Reported History General Exam Limitations: no limitations General appearance: alert, in no apparent distress Head exam: Present: atraumatic, normocephalic, normal inspection Eye exam: Present: PERRL, EOMI, periorbital tenderness (Left-sided). Absent: scleral icterus, conjunctival injection, periorbital swelling Pupils: Present: normal accommodation ENT exam: Present: normal exam, normal oropharynx, mucous membranes moist Neck exam: Present: normal inspection, full ROM. Absent: tenderness, meningismus, lymphadenopathy Respiratory exam: Absent: respiratory distress, accessory muscle use Cardiovascular Exam: Present: regular rate Neurological exam: Present: alert, oriented X3, CN II-XII intact, normal gait Expanded Patient oriented to: Present: person, place, time Speech: Present: fluid speech Cranial nerves: EOM's Intact: Normal, Gag Reflex: Normal, Tongue Deviation: Normal, Facial Sensation: Abnormal Left Eye Response: (4) open spontaneously Motor Response: (6) obeys commands Verbal Response: (5) oriented Sonam Total: 15 Psychiatric exam: Present: normal affect, normal mood Skin exam: Present: warm, dry, normal color. Absent: cyanosis, diaphoretic, pallor Course Vital Signs 06/10/22 06/10/22 08:58 10:38 Temperature 98.0 F Pulse Rate 82 77 Respiratory 18 16 Rate Blood Pressure 145/89 129/84 O2 Sat by Pulse 100 96 Oximetry Medical Decision Making - Medical Decision Making Patient presents with left sided facial pain and numbness since 8 AM. Denies any injury. Has no focal neurological deficits. No vision changes. Patient states is recovering from an upper respiratory infection for the past week. CT interpreted by me shows no evidence of intracranial hemorrhage or midline shift. Sinusitis left maxillary sinus consistent with patient's symptoms recent cold. Radiologist interpretation possible acute on chronic anterior ethmoid sinus disease. No acute intracranial hemorrhage or midline shift. Mild to moderate mucosal thickening left maxillary sinus. History of chronic kidney disease, GFR of 60 therefore patient will be given Augmentin for her sinusitis. Directed to follow-up with the primary care doctor this week. She is agreeable to this plan of care. Case discussed with Dr Bernardo. Disposition Clinical Impression: Sinusitis Disposition: HOME SELF-CARE Condition: Good Instructions (If sedation given, give patient instructions): Sinusitis (ED), Acute Headache (ED) Additional Instructions: Take antibiotics as prescribed. Use nasal saline and increase your fluid intake. You can apply warm compresses to your face. Follow-up with the primary care doctor within the next week. Return to the emergency room with any new or concerning symptoms. Prescriptions: Amoxic-Pot Clav 875-125Mg [Augmentin 875-125] 1 tab PO BID 7 Days #14 tab Is patient prescribed a controlled substance at d/c from ED?: No Referrals: Merlyn Estrella [Primary Care Provider] - 1-2 days Time of Disposition: 10:18
--- NOTE | 2022-06-10 10:04 | CT ---
EXAMINATION TYPE: CT brain wo con DATE OF EXAM: 06/10/2022 COMPARISON: None. HISTORY: LT side headache with numbness. Hx HTN CT DLP: 1188.4 mGycm. Automated Exposure Control for Dose Reduction was Utilized. TECHNIQUE: CT scan of the head is performed without contrast. FINDINGS: There is no acute intracranial hemorrhage, mass effect, or midline shift identified. The ventricles and sulci are within normal limits in size. Watson-white matter differentiation is maintain ed. The calvarium is intact. The globes are intact bilaterally. Mild to moderate mucosal thickening i nvolving the left maxillary sinus. Mild mucosal thickening involving ethmoid sinuses bilaterally with patchy opacification anterior aspect axial image 27. IMPRESSION: Possible acute on chronic anterior ethmoid sinus disease. Correlate clinically. No acute intracranial hemorrhage or midline shift.
[2022-06-10 10:46] VITALS: BP 129/84; PULSE 77; RESP 16
== END 2022-06-10 10:38 | disposition home or self-care (01) ==
LOC: EC 08:44
DX: J32.9 Chronic sinusitis, unspecified (principal); J45.909 Unspecified asthma, uncomplicated; I12.0 Hypertensive chronic kidney disease with stage 5 chronic kidney disease or end stage renal disease; E11.22 Type 2 diabetes mellitus with diabetic chronic kidney disease; N18.6 End stage renal disease; G47.30 Sleep apnea, unspecified; F41.9 Anxiety disorder, unspecified; Z88.6 Allergy status to analgesic agent; Z88.8 Allergy status to other drugs, medicaments and biological substances; Z79.891 Long term (current) use of opiate analgesic; Z79.4 Long term (current) use of insulin
CPT/HCPCS: 70450; 99284; 96372; J1100

== ENCOUNTER → 2022-11-11 | Outpatient (CLI) | payer BC ==
--- NOTE | 2022-11-11 11:12 | P.PN ---
Subjective DATE: 11/11/2022 FOLLOW UP VISIT. Patient with obstructive sleep apnea hypopnea syndrome return to sleep center for follow-up visit. Information from previous visit have been reviewed. Patient is using PAP equipment every night for the whole night, getting PAP supplies in time. The patient does not have significant problems with the mask, PAP unit and humidification. [place] sleepiness scale is 3, which is normal. I checked information from PAP unit. PAP unit pressure 5-15, average 14.6 cm H2O. Usage is 100 % for more then 4 hours, average 8 hours per night. Leak is 22 l/m, which is in acceptable range. Apnea Hypopnea Index is 2.3, which is normal. MEDICATIONS:1. Insulin 2. Metformin once a day 3. Alprazolam 0.5 mg as needed 4. Candisartan During physical exam: GENERAL: A pleasant patient without any distress. VITAL SIGNS: BP 116/79, HR 86, RR 12 , weight 349, temperature 97.7, oxygen saturation at room air 99 % . HEENT: PERRLA, EOMI.low position of soft palate, Mallapati 34 . NECK: Supple. No JVD. LUNGS: Clear to percussion and to auscultation. Good air exchange. No wheezing or rhonchi. HEART: S1, S2 regular. ABDOMEN: Soft and nontender. Obese EXTREMITIES: No clubbing or cyanosis. MEDICAL RESEARCH ASSISTANT: Awake, alert, and oriented x3. No focal deficit. Impressions: 1. Obstructive sleep apnea-hypopnea syndrome. Patient demonstrated great compliance with treatment, benefiting from treatment. 2. Obesity, BMI 62.3, patient increased weight on 13 pounds since previous visit. 3. Hypertension. 4. Diabetes mellitus. 5. History of anxiety. Plan: 1. Continue using PAP equipment every night for the whole night. 2. To change air filter at least 1-2 times per month. 3. PAP unit should stay lower then position of the head. 4. Advised patient to remove all remaining water from humidifier canister daily and make it dry after each usage. Refill canister with fresh distilled water before each usage. 5. Sleep hygiene with regular time in bed for at least 8 hours. 6. Precautions related to driving. No driving if feel any sleepiness. 7. I will maintain prescription for PAP supplies including mask, tube, filters. 8. Watching and losing weight. 9. Follow up visit in 6 months or earlier if patient has any problems. Thank you very much for allowing me to participate in the management of your patient. Gentry Matute MD, PhD, FAASM. Diplomat of [employer], Sleep Medicine Board by [employer] Can Cleaner of [facility] [place]
== END ==
LOC: SLEEP 10:41
PROVIDERS: ATTEND Internal Medicine
DX: G47.33 Obstructive sleep apnea (adult) (pediatric) (principal); E11.9 Type 2 diabetes mellitus without complications; E66.9 Obesity, unspecified; I10 Essential (primary) hypertension; F41.9 Anxiety disorder, unspecified; Z79.84 Long term (current) use of oral hypoglycemic drugs; Z68.44 Body mass index [BMI] 60.0-69.9, adult; Z79.4 Long term (current) use of insulin; Z88.8 Allergy status to other drugs, medicaments and biological substances; Z88.5 Allergy status to narcotic agent; Z87.891 Personal history of nicotine dependence
CPT/HCPCS: 99212

== ENCOUNTER → 2023-09-02 | Outpatient (CLI) | payer BC ==
[2023-09-02 14:58] VITALS: BP 162/80; PULSE 106; RESP 16; TEMP 97.7
--- NOTE | 2023-09-02 16:16 | P.PN ---
Subjective DATE: 09/02/2023 FOLLOW UP VISIT. Patient with obstructive sleep apnea hypopnea syndrome return to sleep center for follow-up visit. Information from previous visit have been reviewed. Patient is using PAP equipment every night for the whole night, getting PAP supplies in time. The patient does not have significant problems with the mask, PAP unit and humidification. [place] sleepiness scale is 1. I checked information from PAP unit. PAP unit pressure 5-15, average 14.3 cm H2O. Usage is 100 % for more then 4 hours, average 7.4 hours per night. Leak is 16 l/m, which is in acceptable range. Apnea Hypopnea Index is 1.0, which is normal. MEDICATIONS:1. Metformin 500 mg twice a day 2. Insulin 3. Candisartan During physical exam: GENERAL: A pleasant patient without any distress. VITAL SIGNS: Past Medical History Physical Exam Vitals: Vital Signs Temp Pulse Resp BP Pulse Ox 09/02/23 15:31 97.9 F 100 16 141/88 99 weight 348, HEENT: PERRLA, EOMI.low position of soft palate, Mallapati 3-4 . NECK: Supple. No JVD. LUNGS: Clear to percussion and to auscultation. Good air exchange. No wheezing or rhonchi. HEART: S1, S2 regular. ABDOMEN: Soft and nontender.[] EXTREMITIES: No clubbing or cyanosis. IMAGE ARCHIVIST: Awake, alert, and oriented x3. No focal deficit. Impressions: 1. Obstructive sleep apnea-hypopnea syndrome. Patient demonstrated great compliance with treatment, benefiting from treatment. 2. Obesity, BMI 61.6, patient lost 1 pounds comparing previous visit. 3. Hypertension. 4. Diabetes mellitus. 5. History of anxiety. Plan: 1. Continue using PAP equipment every night for the whole night. 2. To change air filter at least 1-2 times per month. 3. PAP unit should stay lower then position of the head. 4. Advised patient to remove all remaining water from humidifier canister daily and make it dry after each usage. Refill canister with fresh distilled water before each usage. 5. Sleep hygiene with regular time in bed for at least 8 hours. 6. Precautions related to driving. No driving if feel any sleepiness. 7. I will maintain prescription for PAP supplies including mask, tube, filters. 8. Follow up visit in 6 months or earlier if patient has any problems. 9. Watching and losing weight. Thank you very much for allowing me to participate in the management of your patient. Gentry Matute MD, PhD, FAASM. Diplomat of [place] [employer], Sleep Medicine Board by [place] [employer] Risk Investigator of [facility] [place] Objective - Vital Signs Vital signs: Vital Signs Temp 97.7 F 09/02/23 14:47 Pulse 106 H 09/02/23 14:47 Resp 16 09/02/23 14:47 BP 162/80 09/02/23 14:47 Pulse Ox 98 09/02/23 14:47 FiO2
== END ==
LOC: 3 N SLEEP 14:21
PROVIDERS: ATTEND Internal Medicine
DX: G47.33 Obstructive sleep apnea (adult) (pediatric) (principal); E66.9 Obesity, unspecified; I10 Essential (primary) hypertension; E11.9 Type 2 diabetes mellitus without complications; F41.9 Anxiety disorder, unspecified; F12.90 Cannabis use, unspecified, uncomplicated; Z68.44 Body mass index [BMI] 60.0-69.9, adult; Z79.84 Long term (current) use of oral hypoglycemic drugs; Z79.4 Long term (current) use of insulin; Z99.89 Dependence on other enabling machines and devices; Z88.6 Allergy status to analgesic agent; Z88.8 Allergy status to other drugs, medicaments and biological substances; Z88.1 Allergy status to other antibiotic agents; Z79.899 Other long term (current) drug therapy; Z87.891 Personal history of nicotine dependence

== ENCOUNTER → 2024-11-16 | Outpatient (CLI) | payer BC ==
[2024-11-16 16:48] VITALS: BP 134/88; PULSE 98; RESP 12; TEMP 98.1
--- NOTE | 2024-11-16 17:30 | P.PROGSL ---
Subjective DATE: 11/16/2024 FOLLOW UP VISIT. Patient with obstructive sleep apnea hypopnea syndrome return to sleep center for follow-up visit. Information from previous visit have been reviewed. Patient is using PAP equipment every night for the whole night, getting PAP supplies in time. The patient does not have significant problems with the mask, PAP unit and humidification. [place] sleepiness scale is 5. I checked information from PAP unit. PAP unit pressure 5-15, average 14.6 cm H2O. Usage is 100% for more then 4 hours, average 7.8 hours per night. Leak is increased to 62 l/m. Apnea Hypopnea Index is 1.4, which is normal. MEDICATIONS have been reviewed, please see below. During physical exam: GENERAL: A pleasant patient without any distress. VITAL SIGNS: Please see below, weight is 331 lbs. HEENT: PERRLA, EOMI.low position of soft palate, Mallapati 3/4. NECK: Supple. No JVD. LUNGS: Clear to percussion and to auscultation. Good air exchange. No wheezing or rhonchi. HEART: S1, S2 regular. ABDOMEN: Soft and nontender.[] EXTREMITIES: No clubbing or cyanosis. SUB ARC OPERATOR: Awake, alert, and oriented x3. No focal deficit. Impressions: 1. Obstructive sleep apnea-hypopnea syndrome. Patient demonstrated great compliance with treatment, benefiting from treatment. 2. Obesity, BMI 58.6, patient lost 17 pounds since previous visit. 3. Hypertension. 4. Diabetes mellitus, hemoglobin A1c according to patient 6. 5. Close anxiety. Plan: 1. Continue using PAP equipment every night for the whole night. 2. Sleep hygiene with regular time in bed for at least 7.5-8 hours 3. PAP unit should stay lower then position of the head. 4. Advised patient to remove all remaining water from humidifier canister daily and make it dry after each usage. Refill canister with fresh distilled water before each usage. 5. Watching weight. 6. Precautions related to driving. No driving if feel any sleepiness. 7. I will maintain prescription for PAP supplies including mask, tube, filters. 8. Follow up visit in 8 months or earlier if patient has any problems. Thank you very much for allowing me to participate in the management of your patient. Gentry Matute MD, PhD, FAASM. Diplomat of [place] [employer], Sleep Medicine Board by [place] [employer] Taker Off Braker Machine of [facility] [place] Objective - Vital Signs Vital Signs: Vital Signs Temp 98.1 F 11/16/24 16:48 Pulse 98 11/16/24 16:48 Resp 12 11/16/24 16:48 BP 134/88 11/16/24 16:48 Pulse Ox 99 11/16/24 16:48 FiO2 Intake & Output 11/15/24 11/16/24 11/16/24 18:59 06:59 18:59 Weight 150.139 kg Home Medications: Home Medications Medication Instructions Recorded Confirmed Type ALPRAZolam [Xanax] 0.25 mg PO Q8HR PRN 07/05/14 08/15/22 History Candesartan/Hydrochlorothiazid 1 tab PO DAILY 03/28/21 08/15/22 History [Candesartan/Hydrochlorothiazid 16-12.5 mg] Albuterol Nebulized [Ventolin 2.5 mg INHALATION RT-QID PRN 08/15/22 08/15/22 History Nebulized] Albuterol Sulfate [Ventolin HFA] 2 puff INHALATION RT-Q6H PRN 08/15/22 08/15/22 History Cholecalciferol [Vitamin D3 (125 250 mcg PO Q48H 08/15/22 08/15/22 History Mcg = 5000 Iu)] Famotidine [Pepcid] 20 mg PO BID #60 tablet 08/15/22 Rx Insulin Aspart [NovoLOG Flexpen] 12 units SQ AC-TID 08/15/22 08/15/22 History Insulin Glargine,Hum.rec.anlog 50 units SQ HS 08/15/22 08/15/22 History [Lantus Solostar Pen] metFORMIN HCL ER [Glucophage XR] 500 mg PO DAILY 08/15/22 08/15/22 History
== END ==
LOC: 3 N SLEEP 16:11
PROVIDERS: ATTEND Internal Medicine
DX: G47.33 Obstructive sleep apnea (adult) (pediatric) (principal); E66.9 Obesity, unspecified; I10 Essential (primary) hypertension; E11.9 Type 2 diabetes mellitus without complications; F41.9 Anxiety disorder, unspecified; Z68.43 Body mass index [BMI] 50.0-59.9, adult; Z88.6 Allergy status to analgesic agent; Z91.048 Other nonmedicinal substance allergy status; Z88.8 Allergy status to other drugs, medicaments and biological substances; Z87.891 Personal history of nicotine dependence; Z99.89 Dependence on other enabling machines and devices
CPT/HCPCS: 99212